=== PATIENT | male | born 1980 | race Caucasian/White ===

== ENCOUNTER 2020-12-14 04:19 | Emergency (ER) | payer OTHER, SELFPAY ==
[2020-12-14 04:26] VITALS: BP 140/88; PULSE 82; RESP 14; TEMP 36.8; O2SAT 98; BMI 23.0
[2020-12-14 04:32] VITALS: BP 140/88; PULSE 82; RESP 14; TEMP 36.8; O2SAT 98
[2020-12-14 04:46] LABS: Glucose Urine UA NEG (NEG); Leukocyte Esterase Urine NEG (NEG); Nitrite Urine NEG (NEG); Specific Gravity - Urine 1.025 (1.005-1.025); Urine Blood TRACE (NEG); Urine Ketones NEG (NEG); Urine Protein 2+ MG/DL (NEG-TRACE)
[2020-12-14 04:47] LABS: Appearance Urine CLEAR; Color Urine YELLOW
[2020-12-14 04:58] LABS: Bacteria Urine TRACE /LPF; Squamous Epithelial Cell Urine TRACE /LPF
[2020-12-14 05:04] LABS: Basophils Percent Auto 0.5 % (0-2); Eosinophils Absolute Auto 0.1 X10*3/uL (0.0-0.4); Eosinophils Percent Auto 1.6 % (0-4); Hematocrit 44.3 % (42-52); Hemoglobin 14.7 g/dl (14.0-18.0); Imm Gran Abs Auto 0.01 X10*3/uL (0.00-0.03); Imm Gran Pct Auto 0.3 % (0.0-0.4); Lymphocytes Absolute Auto 1.7 X10*3/uL (1.2-4.9); Lymphocytes Percent Auto 45.8 % (20-40); Mean Corpuscular HGB Conc 33.2 g/dl (31.0-36.0); Mean Corpuscular Hemoglobin 29.5 pg (27.0-33.0); Mean Corpuscular Volume 88.8 fL (80-98); Mean Platelet Volume 10.5 fL (9.4-12.4); Monocytes Absolute Auto 0.4 X10*3/uL (0.1-1.2); Monocytes Percent Auto 9.5 % (2-11); Neutrophils Absolute Auto 1.6 X10*3/uL (2.0-8.3); Neutrophils Percent Auto 42.3 % (45-73); Platelet Count 262 X10*3/uL (160-400); Red Blood Count 4.99 X10*6/uL (4.60-5.80); Red Cell Distribution Width 12.2 % (11.0-16.0); White Blood Count 3.8 X10*3/uL (4.8-10.8)
[2020-12-14 05:05] LABS: MANUAL DIFF FLAG NO
[2020-12-14 05:29] LABS: Alanine Aminotransferase 17 U/L (0-40); Albumin Level 4.4 g/dL (3.5-5.0); Alkaline Phosphatase 55 U/L (39-117); Anion Gap 15 (12-20); Aspartate Amino Transferase 15 U/L (5-37); Bilirubin Total 1.1 mg/dL (0.0-1.0); Blood Urea Nitrogen 18 mg/dL (9-16); Calcium 9.4 mg/dL (8.4-10.2); Carbon Dioxide 24 mmol/L (22-29); Chloride 105 mmol/L (96-108); Creatinine Clr Calc Pharmacy 78.5; Estimated Glomerular Filt Rate 59; Glucose Random 90 mg/dL (60-115); Potassium 3.9 mmol/l (3.3-5.1); Sodium 140 mmol/L (135-145); Total Protein 6.8 g/dL (6.5-8.0)
--- NOTE | 2020-12-14 05:56 | CT_ITS ---
EXAMINATION: CT ABDOMEN AND PELVIS WITHOUT CONTRAST CLINICAL INFORMATION: Right flank pain, history of left nephrectomy COMPARISON: 05/07/2020 TECHNIQUE: Multidetector volumetric imaging was performed from the superior aspect of the liver through the pubic symphysis. Sagittal and coronal reformatted images were obtained on the technologist's workstation. This CT examination was performed using dose optimization techniques as appropriate, variously including the following: *Automated exposure control *Adjustment of mA and/or kV according to patient size (this includes techniques or standardized protocols for targeted exams where dose is matched to indication/reason for exam; i.e. extremities or head) *Use of iterative reconstruction technique DLP: 520 mGy-cm FINDINGS: LUNG BASES: The visualized lung bases are unremarkable. LIVER, GALLBLADDER, AND BILIARY TREE: The liver is normal in size, shape, and attenuation. No focal hepatic lesion or biliary ductal dilatation is present. The gallbladder is unremarkable. PANCREAS: Unremarkable. SPLEEN: Unremarkable. ADRENAL GLANDS: Unremarkable. KIDNEYS AND URETERS: Patient is status post left nephrectomy. No right-sided hydronephrosis or ureteral calculus. Few tiny calculi are noted in the peripheral cortex of the mid to lower right kidney. BLADDER: Unremarkable. GASTROINTESTINAL TRACT: The small and large bowel are unremarkable. The appendix is unremarkable. No free fluid or free air is seen. ABDOMINAL WALL: No significant hernia is appreciated. LYMPH NODES: Normal. VASCULAR: Unremarkable. PELVIC VISCERA: Unremarkable. OSSEOUS STRUCTURES: Unremarkable. CT/CT abdomen pelvis wo con IMPRESSION: No acute findings identified in the abdomen/pelvis. Status post left nephrectomy.
--- NOTE | 2020-12-14 05:56 | ED.GENADULT ---
HPI - General Adult General Chief complaint: Urogenital-Male Stated complaint: General PAin Time Seen by Provider: 12/14/20 04:48 Source: patient Mode of arrival: ambulatory History of Present Illness HPI narrative: This is a 40-year-old male with significant past medical history left nephrectomy for CA who presents with concerns achy pain at the right flank that he describes as being a little more posterior and is not been associated with any nausea or vomiting or urinary symptoms. However, patient states he has been experiencing some chills with headache, heart palpitations, ?GI symptoms?, and poor sleep. He then endorses that he has had intermittent struggles with anxiety. Related Data Previous Rx's Medication Instructions Recorded hydroxyzine HCl 50 mg PO TID PRN #10 tab 12/14/20 Allergies Allergy/AdvReac Type Severity Reaction Status Date / Time No Known Allergies Allergy Verified 12/14/20 04:25 Review of Systems Review of Systems: Pertinent positives and negatives as stated in HPI 10 point review systems is otherwise negative. PMFSH Past Medical History Source: nursing notes reviewed Medical History Anxiety Social History Social History Alcohol intake: never Smoking Status: Never smoker Use of substances other than those prescribed or required for medical reasons: No Advance Directives: No Physical Exam Vital Signs: Vital Signs: Last Vital Signs Temp 98.2 F 12/14/20 04:32 Pulse 82 12/14/20 04:32 Resp 14 12/14/20 04:32 BP 140/88 H 12/14/20 04:32 Pulse Ox 98 12/14/20 04:32 Body Mass Index 23.0 VITAL SIGNS: Reviewed. GENERAL: Well developed, well nourished, in no acute distress. HEAD: Normocephalic/atraumatic, EYES: PERRLA, EOMI intact without pain, no nystagmus/pallor/icterus noted EARS: Ext canals without abnormality NOSE: Nares patent bilateral OROPHARYNX: no oral lesions noted, posterior pharynx clear NECK: Supple, no adenopathy LUNGS: Normal breath sounds. No adventitious sounds or accessory muscle use. SpO2<98> CARDIOVASCULAR: Regular rate and rhythm without noted murmurs ABDOMEN: Soft, non-tender, non-distended with bowel sounds. MUSCULOSKELETAL: No tenderness, deformities, or effusions noted on gross inspection. EXTREMITIES: No cyanosis, clubbing or edema. SKIN: Inspection of the skin reveals no rashes, ulcerations, jaundice, pallor, or petechiae. NEUROLOGIC: Alert and oriented x 4. Course Course Course Narrative: This is a 40-year-old male with history and clinical presentation consistent with likely anxiety, however with noted right flank pain remote history left nephrectomy for cancer further evaluation was conducted. All investigations were reviewed to include imaging without acute findings demonstrate alternative etiologies for patient's symptoms. On re-evaluation he endorses some improvement in his anxiety-like symptoms. He was strongly encouraged to follow-up with his primary care doctor and he will be discharged in stable condition. Medical Decision Making Lab Data Result diagrams: 12/14/20 04:59 12/14/20 04:59 Labs: Lab Results 12/14/20 12/14/20 12/14/20 Range/Units 04:37 04:59 04:59 WBC 3.8 L (4.8-10.8) X10*3/uL RBC 4.99 (4.60-5.80) X10*6/uL Hgb 14.7 (14.0-18.0) g/dl Hct 44.3 (42-52) % MCV 88.8 (80-98) fL MCH 29.5 (27.0-33.0) pg MCHC 33.2 (31.0-36.0) g/dl RDW 12.2 (11.0-16.0) % Plt Count 262 (160-400) X10*3/uL MPV 10.5 (9.4-12.4) fL Immature Gran % (Auto) 0.3 (0.0-0.4) % Neut % (Auto) 42.3 L (45-73) % Lymph % (Auto) 45.8 H (20-40) % [place] % (Auto) 9.5 (2-11) % Eos % (Auto) 1.6 (0-4) % Baso % (Auto) 0.5 (0-2) % Lymph # (Auto) 1.7 (1.2-4.9) X10*3/uL [place] # (Auto) 0.4 (0.1-1.2) X10*3/uL Eos # (Auto) 0.1 (0.0-0.4) X10*3/uL Baso # (Auto) 0.0 (0.0-0.2) X10*3/uL Abs Immat Gran (auto) 0.01 (0.00-0.03) X10*3/uL Absolute Neuts (auto) 1.6 L (2.0-8.3) X10*3/uL Absolute Nucleated RBC 0.000 (0.0-0.012) X10*3/uL Nucleated RBC % (auto) 0.0 (0.0-0.2) /100WBC Sodium 140 (135-145) mmol/L Potassium 3.9 (3.3-5.1) mmol/l Chloride 105 (96-108) mmol/L Carbon Dioxide 24 (22-29) mmol/L Anion Gap 15 (12-20) BUN 18 H (9-16) mg/dL Creatinine 1.35 (0.5-1.4) mg/dL Estim Creat Clear Calc 78.5 Estimated GFR 59 Random Glucose 90 (60-115) mg/dL Calcium 9.4 (8.4-10.2) mg/dL Total Bilirubin 1.1 H (0.0-1.0) mg/dL AST 15 (5-37) U/L ALT 17 (0-40) U/L Alkaline Phosphatase 55 (39-117) U/L Total Protein 6.8 (6.5-8.0) g/dL Albumin 4.4 (3.5-5.0) g/dL TSH 1.41 (0.32-4.0) uIU/mL Urine Color YELLOW Urine Appearance CLEAR Urine pH 6.0 (5.0-8.0) Ur Specific [place] 1.025 (1.005-1.025) Urine Protein 2+ H (NEG-TRACE) MG/DL Urine Glucose (UA) NEG (NEG) MG/DL Urine Ketones NEG (NEG) MG/DL Urine Blood TRACE (NEG) Urine Nitrite NEG (NEG) Ur Leukocyte Esterase NEG (NEG) Urine RBC 1-4 (0) /HPF Urine WBC 1-4 (0-4) /HPF Ur Squamous Epith Cells TRACE /LPF Urine Bacteria TRACE /LPF Discharge Plan Discharge Clinical Impression: Anxiety, Right flank discomfort Patient Disposition: Home, Self-Care Instructions: Flank Pain (ED), Anxiety (ED) Additional Instructions: Please do not hesitate to return to the emergency department if you develop any acute worsening of your symptoms. Prescriptions: New hydroxyzine HCl 50 mg tablet 50 mg PO TID PRN (Reason: anxiety) Qty: 10 RF: 0 Referrals: Robles Brumfield DO [Primary Care Provider] - 2 days (Re-evaluation and follow-up for right flank pain and anxiety like symptoms.)
[2020-12-14 06:00] VITALS: BP 133/77; PULSE 55; O2SAT 99
[2020-12-14] MEDS: hydrOXYzine HCL 50 MG TABLET PO (06:03)
[2020-12-14 06:39] LABS: Thyroid Stimulating Hormone 1.41 uIU/mL (0.32-4.0)
== END 2020-12-14 07:25 | disposition home or self-care (01) ==
PROVIDERS: Emergency Provider Student in an Organized Health Care Education/Training Program; PCP Family Medicine Adult Medicine
DX: F41.9 Anxiety disorder, unspecified (principal); R10.9 Unspecified abdominal pain
CPT/HCPCS: 36415; 74176; 80053; 81001; 84443; 85025; 99284

== ENCOUNTER 2021-03-26 06:27 | Outpatient (REF) | payer OTHER, SELFPAY ==
[2021-03-26 07:37] LABS: MANUAL DIFF FLAG NO
[2021-03-26 07:46] LABS: Basophils Percent Auto 0.6 % (0-2); Eosinophils Absolute Auto 0.1 X10*3/uL (0.0-0.4); Eosinophils Percent Auto 1.9 % (0-4); Hematocrit 45.9 % (42-52); Hemoglobin 15.1 g/dl (14.0-18.0); Lymphocytes Absolute Auto 1.8 X10*3/uL (1.2-4.9); Mean Corpuscular HGB Conc 32.9 g/dl (31.0-36.0); Mean Corpuscular Hemoglobin 29.4 pg (27.0-33.0); Mean Corpuscular Volume 89.5 fL (80-98); Mean Platelet Volume 11.3 fL (9.4-12.4); Monocytes Absolute Auto 0.4 X10*3/uL (0.1-1.2); Monocytes Percent Auto 8.4 % (2-11); Neutrophils Absolute Auto 2.4 X10*3/uL (2.0-8.3); Neutrophils Percent Auto 51.1 % (45-73); Platelet Count 286 X10*3/uL (160-400); Red Blood Count 5.13 X10*6/uL (4.60-5.80); Red Cell Distribution Width 12.5 % (11.0-16.0); White Blood Count 4.7 X10*3/uL (4.8-10.8)
[2021-03-26 07:56] LABS: Glucose Urine UA NEG (NEG); Leukocyte Esterase Urine NEG (NEG); Nitrite Urine NEG (NEG); Specific Gravity - Urine 1.025 (1.005-1.025); Urine Blood NEG (NEG); Urine Ketones NEG (NEG); Urine Protein 1+ MG/DL (NEG-TRACE)
[2021-03-26 07:58] LABS: Appearance Urine CLEAR; Color Urine YELLOW
[2021-03-26 08:00] LABS: Alanine Aminotransferase 25 U/L (0-40); Albumin Level 4.5 g/dL (3.5-5.0); Alkaline Phosphatase 61 U/L (39-117); Anion Gap 10 (12-20); Aspartate Amino Transferase 16 U/L (5-37); Bilirubin Total 0.6 mg/dL (0.0-1.0); Blood Urea Nitrogen 16 mg/dL (9-16); Calcium 9.8 mg/dL (8.4-10.2); Carbon Dioxide 28 mmol/L (22-29); Chloride 105 mmol/L (96-108); Cholesterol 227 mg/dL; Estimated Glomerular Filt Rate 57; Glucose Fasting 94 mg/dL (60-99); HDL Cholesterol 50 mg/dL; LDL Cholesterol Calculated 161 mg/dl; Potassium 4.1 mmol/L (3.3-5.1); Sodium 139 mmol/L (135-145); Total Protein 7.1 g/dL (6.5-8.0); Triglycerides 81 mg/dL
[2021-03-26 08:08] LABS: RBC Urine 0 /HPF (0); WBC Urine 0 /HPF (0-4)
[2021-03-26 08:23] LABS: Thyroid Stimulating Hormone 0.84 uIU/mL (0.32-4.0)
== END 2021-03-26 06:28 | disposition home or self-care (01) ==
LOC: HO.LAB 06:27
PROVIDERS: PCP Internal Medicine; Visit Provider Internal Medicine
DX: Z00.00 Encounter for general adult medical examination without abnormal findings (principal); E11.9 Type 2 diabetes mellitus without complications; E03.9 Hypothyroidism, unspecified; N39.0 Urinary tract infection, site not specified
CPT/HCPCS: 36415; 80053; 80061; 81001; 84443; 85025

== ENCOUNTER 2021-05-09 08:30 | Outpatient (REF) | payer OTHER, SELFPAY ==
[2021-05-09 10:49] LABS: Blood Urea Nitrogen 20 mg/dL (9-16); C Reactive Protein 0.07 mg/dL (< or = 0.50); Estimated Glomerular Filt Rate > 60
[2021-05-10 13:57] LABS: H Pylori Breath Test NOT DETECTED (NOT DETECTED)
[2021-05-12 01:12] LABS: Transglutaminase Ab IgG 1 U/mL; Transglutaminase IgA 1 U/mL
== END 2021-05-09 08:31 | disposition home or self-care (01) ==
LOC: HO.LAB 08:30
PROVIDERS: PCP Physician Assistant; Referring Provider Physician Assistant; Visit Provider Nurse Practitioner Family
DX: Z01.812 Encounter for preprocedural laboratory examination (principal); H93.19 Tinnitus, unspecified ear; K21.9 Gastro-esophageal reflux disease without esophagitis; R14.1 Gas pain; R10.9 Unspecified abdominal pain
CPT/HCPCS: 36415; 82565; 83013; 83516; 84520; 86140

== ENCOUNTER 2021-05-24 12:47 | Outpatient (REF) | payer OTHER, SELFPAY ==
[2021-05-24 14:07] LABS: Prostate Specific Antigen Scr 1.29 ng/mL (<0.05-4.0)
[2021-05-24 14:16] LABS: Glucose Urine UA NEG (NEG); Leukocyte Esterase Urine NEG (NEG); Nitrite Urine NEG (NEG); Specific Gravity - Urine <= 1.005 (1.005-1.025); Urine Blood NEG (NEG); Urine Ketones NEG (NEG); Urine Protein TRACE MG/DL (NEG-TRACE)
[2021-05-24 14:19] LABS: Appearance Urine CLEAR; Color Urine STRAW
[2021-05-25 08:47] LABS: Lyme Abs Screen <0.90 index
== END 2021-05-24 12:48 | disposition home or self-care (01) ==
LOC: HO.LAB 12:47
PROVIDERS: Internal Medicine; PCP Physician Assistant; Visit Provider Physician Assistant
DX: Z12.5 Encounter for screening for malignant neoplasm of prostate (principal); R53.83 Other fatigue; N39.0 Urinary tract infection, site not specified
CPT/HCPCS: 36415; 81003; 84153; 86617; 86618

== ENCOUNTER 2022-01-24 09:35 | Outpatient (REF) | payer OTHER, SELFPAY ==
[2022-01-24 11:00] LABS: Erythrocyte Sedimentation Rate 2 MM/HR (0-15)
[2022-01-24 11:03] LABS: Estimated Average Glucose 100 mg/dL; Hemoglobin A1c % 5.1 %
[2022-01-24 11:11] LABS: Alanine Aminotransferase 80 U/L (0-40); Albumin Level 4.5 g/dL (3.5-5.0); Alkaline Phosphatase 71 U/L (39-117); Anion Gap 11 (12-20); Aspartate Amino Transferase 32 U/L (5-37); Bilirubin Total 0.7 mg/dL (0.0-1.0); Blood Urea Nitrogen 19 mg/dL (9-16); C Reactive Protein 0.07 mg/dL (< or = 0.50); Carbon Dioxide 30 mmol/L (22-29); Chloride 102 mmol/L (96-108); Estimated Glomerular Filt Rate 51; Glucose Fasting 93 mg/dL (60-99); Lipase 69 U/L (8-78); Potassium 4.6 mmol/L (3.3-5.1); Sodium 138 mmol/L (135-145); Total Protein 7.3 g/dL (6.5-8.0)
[2022-01-24 11:14] LABS: TSH reflex Free T4 0.89 uIU/mL (0.32-4.0)
== END 2022-01-24 09:36 | disposition home or self-care (01) ==
LOC: HO.LAB 09:35
PROVIDERS: PCP Physician Assistant; Visit Provider Physician Assistant
DX: R14.1 Gas pain (principal); R79.89 Other specified abnormal findings of blood chemistry; Z13.1 Encounter for screening for diabetes mellitus; Z13.29 Encounter for screening for other suspected endocrine disorder
CPT/HCPCS: 36415; 80053; 83036; 83690; 84443; 85652; 86140

== ENCOUNTER 2022-03-11 15:43 | Outpatient (REF) | payer OTHER, SELFPAY ==
[2022-03-11 17:47] LABS: Amylase 130 U/L (28-100)
[2022-03-11 18:04] LABS: Vitamin B12 308 pg/mL (200-900)
[2022-03-15 14:21] LABS: Vitamin D 25-OH, D2 <4 ng/mL; Vitamin D 25-OH, D3 37 ng/mL; Vitamin D 25-OH, Total 37 ng/mL (30-100)
== END 2022-03-11 15:44 | disposition home or self-care (01) ==
LOC: HO.LAB 15:43
PROVIDERS: PCP Physician Assistant; Referring Provider Physician Assistant; Visit Provider Nurse Practitioner Family
DX: R14.0 Abdominal distension (gaseous) (principal); R19.7 Diarrhea, unspecified; K21.9 Gastro-esophageal reflux disease without esophagitis; E55.9 Vitamin D deficiency, unspecified
CPT/HCPCS: 36415; 82150; 82306; 82607; 82746; 86003; 99212

== ENCOUNTER 2022-11-03 02:44 | Emergency (ER) | payer OTHER, SELFPAY | END 2022-11-03 04:02 | disposition left against medical advice (07) | PROVIDERS: Emergency Provider Emergency Medicine | DX: R05.9 Cough, unspecified (principal) ==

== ENCOUNTER 2022-11-03 07:08 | Emergency (ER) | payer OTHER, SELFPAY ==
[2022-11-03 07:09] VITALS: BP 137/98; PULSE 92; RESP 18; TEMP 36.6; O2SAT 98; BMI 25.1
[2022-11-03 07:35] LABS: Strep A Nucleic Acid Negative (Negative)
[2022-11-03 08:11] LABS: Influenza A PCR NEGATIVE (Negative); Influenza B PCR NEGATIVE (Negative); Resp Syncy Virus RNA Qual PCR NEGATIVE (Negative); SARS COV2 PCR INHOUSE POSITIVE (Negative)
--- NOTE | 2022-11-03 08:12 | ED.GENADULT ---
HPI - General Adult General Chief complaint: General Medical Stated complaint: Strep throat Time Seen by Provider: 11/03/22 08:10 Source: patient Mode of arrival: ambulatory Limitations: no limitations History of Present Illness HPI narrative: cough, rhinorrhea, for 5 days, now with sore throat. Difficulty swallowing Onset (ago): day(s) Severity: mild Pain Consistency: constant Associated symptoms: cough, fever/chills and other (sore throat) Related Data Previous Rx's Medication Instructions Recorded simethicone 125 mg capsule (Gas 125 mg PO TID-QID PRN abdominal 05/09/21 Relief (simethicone)) distention #120 caps [id number] 1 cap PO QID #120 caps 03/11/22 12,000-38,000-60,000 unit capsule,delayed rel (Creon) [id number]-[id number] 2.5 20 ml PO Q4H PRN cough #118 mL 11/03/22 mg-5 mg-50 mg/5 mL oral liquid (Robitussin Cough and Cold CF) Allergies Allergy/AdvReac Type Severity Reaction Status Date / Time No Known Allergies Allergy Verified 03/11/22 15:47 Review of Systems Review of Systems: Yes all other systems are reviewed and are negative ENT: Reports sore throat Respiratory: Respiratory: Reports chest congestion and Reports cough PMFSH Past Medical History Medical History Anxiety Surgical History History of nephrectomy, left Family History Family History Mother No problems noted. Father No problems noted. 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 Physical Exam ED Vital Signs: Vital Signs - 24 hr 11/03/22 07:09 Temperature 98 F Pulse Rate 92 Respiratory Rate 18 Blood Pressure 137/98 H Pulse Oximetry 98 Oxygen Delivery Method Room Air BMI result Body Mass Index 25.1 Const Other: coughing General: healthy appearing Nutritional Appearance: average body habitus Orientation/consciousness: oriented to person and patient oriented x3 Limitations: no limitations HENMT Head: Yes normal to inspection Ears: external ears normal General nose exam: Normal external nose present Mouth: Normal oral and palatal mucosa present and oropharynx normal Throat: Yes posterior oropharynx normal Eyes General: appearance normal, both eyes and all related structures Neck Neck: Yes normal visual inspection Chest Chest palpation & inspection: normal inspection of the chest Resp Auscultation: clear to auscultation bilaterally Cardio Jugular venous distension: no JVD Rate: regular rate Rhythm: regular rhythm Heart sounds: S1 normal heart sound present and S2 normal heart sound present GI Inspection: Yes normal to inspection Palpation (GI): Soft to palpation, nontender and No hepatosplenomegaly present Auscultation: normal bowel sounds General: Yes no CVA tenderness Back/Spine/Pelvis Back: no CVA tenderness Skin General skin exam: no rashes or lesions noted Neuro General: oriented to person and patient oriented x3 Cranial nerves: Yes CN's II-XII intact bilaterally Motor exam (neuro): 5/5 motor strength present throughout Extrem General: Yes normal to inspection Psych Appearance: grossly normal Course Reevaluation(s) Reevaluation #1: patient with COVID will dc on Robitussin Time: 08:30 Medical Decision Making Lab Data Labs: Lab Results 11/03/22 11/03/22 Range/Units 07:18 07:18 Influenza Type A (PCR) NEGATIVE (Negative) Influenza Type B (PCR) NEGATIVE (Negative) RSV RNA Qual (PCR) NEGATIVE (Negative) SARS-CoV-2 RNA (RT-PCR) POSITIVE A (Negative) S. pyogenes GrpA NAZARIO Negative (Negative) Discharge Plan Discharge Clinical Impression: COVID-19 Patient Disposition: Home, Self-Care Instructions: Covid-19 Viral Syndrome and Novel Coronavirus (ED) Hey/Ath Prescriptions: New Robitussin Cough and Cold CF 2.5-5-50 mg/5 mL liquid 20 ml PO Q4H PRN (Reason: cough) Qty: 118 0RF No Action simethicone [Gas Relief (simethicone)] 125 mg capsule 125 mg PO TID-QID PRN (Reason: abdominal distention) Qty: 120 2RF Creon 12,000-38,000 -60,000 unit capsule,delayed release(DR/EC) 1 cap PO QID Qty: 120 3RF Rx Instructions: administer with meals and/or snacks Referrals: Reg Rogers PA-C [Primary Care Provider] - 1 week
== END 2022-11-03 08:38 | disposition home or self-care (01) ==
PROVIDERS: Emergency Provider Emergency Medicine; PCP Physician Assistant
DX: U07.1 COVID-19 (principal); J02.0 Streptococcal pharyngitis; R05.9 Cough, unspecified; R50.9 Fever, unspecified
CPT/HCPCS: 0241U; 87651; 99282; 99283

== ENCOUNTER 2023-02-10 07:56 | Outpatient (REF) | payer OTHER, SELFPAY ==
[2023-02-10 08:29] LABS: Hematocrit 49.9 % (42.0-52.0); Hemoglobin 16.3 g/dl (14.0-18.0); Mean Corpuscular HGB Conc 32.7 g/dl (31.0-36.0); Mean Corpuscular Hemoglobin 28.9 pg (27.0-33.0); Mean Corpuscular Volume 88.5 fL (80.0-98.0); Mean Platelet Volume 10.8 fL (9.4-12.4); Platelet Count 314 X10*3/uL (160-400); Red Blood Count 5.64 X10*6/uL (4.60-5.80); Red Cell Distribution Width 12.7 % (11.0-16.0); White Blood Count 5.6 X10*3/uL (4.8-10.8)
[2023-02-10 09:10] LABS: Alanine Aminotransferase 32 U/L (0-40); Albumin Level 4.5 g/dL (3.5-5.0); Alkaline Phosphatase 75 U/L (39-117); Anion Gap 15 (12-20); Aspartate Amino Transferase 20 U/L (5-37); Bilirubin Total 0.7 mg/dL (0.0-1.0); Blood Urea Nitrogen 26 mg/dL (9-16); Calcium 9.8 mg/dL (8.4-10.2); Carbon Dioxide 26 mmol/L (22-29); Chloride 104 mmol/L (96-108); Estimated Glomerular Filt Rate 50; Glucose Fasting 88 mg/dL (60-99); Potassium 4.6 mmol/L (3.3-5.1); Sodium 140 mmol/L (135-145); Total Protein 7.4 g/dL (6.5-8.0)
[2023-02-10 09:25] LABS: TSH reflex Free T4 1.16 uIU/mL (0.32-4.0)
== END 2023-02-10 07:57 | disposition home or self-care (01) ==
LOC: HO.LAB 07:56
PROVIDERS: PCP Physician Assistant; Visit Provider Physician Assistant
DX: Z13.29 Encounter for screening for other suspected endocrine disorder (principal)
CPT/HCPCS: 36415; 80053; 84443; 85027

== ENCOUNTER 2023-03-10 05:54 | Emergency (ER) | payer OTHER, SELFPAY ==
--- NOTE | ~2023-03-10 | CT_ITS ---
EXAMINATION: CT ABDOMEN AND PELVIS WITHOUT CONTRAST CLINICAL INFORMATION: Flank pain, history of left nephrectomy. COMPARISON: CT abdomen/pelvis 12/14/2020, 05/07/2020 and 10/30/2017. TECHNIQUE: Multidetector volumetric imaging was performed from the superior aspect of the liver through the pubic symphysis. Sagittal and coronal reformatted images were obtained on the technologist's workstation. This CT examination was performed using dose optimization techniques as appropriate, variously including the following: *Automated exposure control *Adjustment of mA and/or kV according to patient size (this includes techniques or standardized protocols for targeted exams where dose is matched to indication/reason for exam; i.e. extremities or head) *Use of iterative reconstruction technique DLP: 472 mGy-cm FINDINGS: The lack of intravenous contrast limits evaluation of the solid visceral organs including the liver, spleen, pancreas, and kidneys. LUNG BASES: No focal consolidation or pleural effusion. LIVER, GALLBLADDER, AND BILIARY TREE: The noncontrast liver is normal in size, shape, and attenuation. No focal hepatic lesion in this limited noncontrast examination. No biliary ductal dilatation is present. The gallbladder is unremarkable with no evidence of radiopaque gallstones, gallbladder wall thickening, or obvious pericholecystic inflammatory changes. PANCREAS: Limited noncontrast examination, unremarkable. SPLEEN: Limited noncontrast examination, unremarkable. ADRENAL GLANDS: No adrenal mass. KIDNEYS AND URETERS: Limited noncontrast examination. Prior left nephrectomy. A few tiny punctate areas of cortical calcification in the right kidney, for instance images 32 and 23 of series 3 are stable dating back to 05/07/2020. A few too small to characterize cortical hypo and hyperdensities in the right kidney, likely representing a combination of simple and proteinaceous/hemorrhagic cysts. No nephrolithiasis. No perinephric fat stranding. BLADDER: Partially under distended limiting assessment of wall thickening. No intraluminal calculi. No significant perivesical fat stranding. GASTROINTESTINAL TRACT: The stomach and the small bowel are nondilated. Normal appendix. Colonic diverticulosis without significant pericolonic inflammatory changes to suspect acute diverticulitis. No bowel obstruction. ABDOMINAL WALL: No significant hernia is appreciated. LYMPH NODES: No pathologically enlarged lymph nodes. VASCULAR: Limited noncontrast examination. Abdominal aorta is normal in caliber. PELVIC VISCERA: Unremarkable. OSSEOUS STRUCTURES: No acute or aggressive appearing osseous abnormalities. CT/CT abdomen pelvis wo IV con IMPRESSION: No acute findings identified in the abdomen/pelvis. A few hyper and hypodensities in the cortex of the right kidney, many stable since 2017, likely represent a combination of simple and proteinaceous/hemorrhagic cysts, incompletely characterized in this noncontrast examination. For further characterization, correlation with an elective abdominal MRI with and without IV contrast could be obtained.
[2023-03-10 06:01] VITALS: BP 142/89; PULSE 81; RESP 18; TEMP 36.4; O2SAT 100; BMI 25.1
[2023-03-10 06:32] LABS: MANUAL DIFF FLAG NO
[2023-03-10 06:36] LABS: Basophils Percent Auto 0.5 % (0-2); Eosinophils Absolute Auto 0.1 X10*3/uL (0.0-0.4); Eosinophils Percent Auto 2.5 % (0-4); Hematocrit 49.8 % (42.0-52.0); Lymphocytes Percent Auto 35.5 % (20-40); Mean Corpuscular HGB Conc 34.1 g/dl (31.0-36.0); Mean Corpuscular Hemoglobin 29.8 pg (27.0-33.0); Mean Corpuscular Volume 87.4 fL (80.0-98.0); Mean Platelet Volume 10.8 fL (9.4-12.4); Monocytes Absolute Auto 0.5 X10*3/uL (0.1-1.2); Monocytes Percent Auto 8.9 % (2-11); Neutrophils Absolute Auto 2.9 x10*3/uL (2.0-8.3); Neutrophils Percent Auto 52.6 % (45-73); Platelet Count 305 X10*3/uL (160-400); Red Cell Distribution Width 12.6 % (11.0-16.0); White Blood Count 5.5 X10*3/uL (4.8-10.8)
[2023-03-10 06:56] LABS: Alanine Aminotransferase 34 U/L (0-40); Albumin Level 4.5 g/dL (3.5-5.0); Alkaline Phosphatase 78 U/L (39-117); Anion Gap 10 (12-20); Aspartate Amino Transferase 18 U/L (5-37); Bilirubin Direct 0.1 mg/dL (0.0-0.5); Bilirubin Total 0.7 mg/dL (0.0-1.0); Blood Urea Nitrogen 18 mg/dL (9-16); Calcium 9.7 mg/dL (8.4-10.2); Carbon Dioxide 27 mmol/L (22-29); Chloride 107 mmol/L (96-108); Estimated Glomerular Filt Rate 50; Glucose Random 97 mg/dL (60-115); Lipase 66 U/L (8-78); Potassium 4.2 mmol/L (3.3-5.1); Sodium 140 mmol/L (135-145); Total Protein 7.3 g/dL (6.5-8.0)
--- NOTE | 2023-03-10 07:30 | ED.GENADULT ---
HPI - General Adult General Chief complaint: Back Pain/Injury Stated complaint: back pain Time Seen by Provider: 03/10/23 07:16 Source: patient Mode of arrival: ambulatory Limitations: no limitations History of Present Illness HPI narrative: 42-year-old male with history of kidney cancer status post left nephrectomy presents with right flank pain. The pain started approximately 1 week ago. The pain is [id number]. There is no clear relieving or exacerbating features. Sometimes the pain radiates upward or sometimes the abdomen. There is an patient denies any recent weight loss. She he denies any night sweats. Denies any urinary frequency, urgency, dysuria or hematuria. There is no prior treatment. The pain is not worse with movement, twisting, lifting. Denies any falls, injuries trauma symptoms are associated with some anxieties so seated with his history of kidney cancer. Related Data Home Medications Medication Instructions Recorded Confirmed No Known Home Meds 01/27/23 01/27/23 Allergies Allergy/AdvReac Type Severity Reaction Status Date / Time No Known Allergies Allergy Verified 03/10/23 06:06 [facility] Past Medical History Medical History Anxiety Surgical History History of nephrectomy, left Family History Family History Mother No problems noted. Father No problems noted. 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 Cognitive needs: No Hearing needs: No Vision needs: No Physical Exam ED Vital Signs: Vital Signs - 24 hr 03/10/23 06:01 Temperature 97.6 F Pulse Rate 81 Respiratory Rate 18 Blood Pressure 142/89 H Pulse Oximetry 100 Oxygen Delivery Method Room Air BMI result Body Mass Index 25.1 GEN: Well developed, no acute distress, alert, oriented HEENT: Normocephalic, atraumatic, normal external ears, nose appears normal, no oropharyngeal edema or exudates Eyes: Normal to appearance Neck: Supple, no lymphadenopathy Respiratory: Talks in complete sentences, no respiratory distress, clear to auscultation bilaterally Cardiovascular: Regular rate and rhythm, no murmurs rubs or gallops Abdomen: Soft, nontender, nondistended, no guarding, no rebound Back: No CVA tenderness Extremities: No clubbing cyanosis or edema Neurologic: No focal neurologic deficits, cranial nerves 2-12 intact, strength is 5/5 bilaterally Skin: No rash Course Course Course Narrative: 42-year-old male presents with right flank pain. Patient has history kidney cancer. Examination is benign. At this point, it would be appropriate to do dry imaging given chronic renal insufficiency. His symptoms are not clearly musculoskeletal at this time as they are not associated with movement. There has been no weight loss, night sweats. Denies him any hematuria. Patient does not want anything for pain at this time. Medical Decision Making Medical Decision Making [facility] Narrative: 42-year-old male presents with right flank pain. Differential diagnosis could include renal colic, hematuria, kidney cancer, musculoskeletal pain, anxiety, IBD, IBS, colitis, diverticulitis, acute cholecystitis. Examination however, is quite benign. Will check laboratory analysis, urinalysis, CT scan of the abdomen and pelvis to rule out a broad differential diagnosis. Differential Diagnosis Differential Diagnoses: The differential diagnosis associated with the presentation includes (See above) Admission/Observation Consideration of admission/observation: Escalation of care including admission/observation considered Lab Data MDM Lab Attestation statement: I reviewed the patient's lab results. 03/10/23 06:26 03/10/23 06:26 Labs: Lab Results 03/10/23 03/10/23 03/10/23 Range/Units 06:26 06:26 07:37 WBC 5.5 (4.8-10.8) X10*3/uL RBC 5.70 (4.60-5.80) X10*6/uL Hgb 17.0 (14.0-18.0) g/dl Hct 49.8 (42.0-52.0) % MCV 87.4 (80.0-98.0) fL MCH 29.8 (27.0-33.0) pg MCHC 34.1 (31.0-36.0) g/dl RDW 12.6 (11.0-16.0) % Plt Count 305 (160-400) X10*3/uL MPV 10.8 (9.4-12.4) fL Immature Gran % (Auto) 0.0 (0.0-0.4) % Neut % (Auto) 52.6 (45-73) % Lymph % (Auto) 35.5 (20-40) % [place] % (Auto) 8.9 (2-11) % Eos % (Auto) 2.5 (0-4) % Baso % (Auto) 0.5 (0-2) % Lymph # (Auto) 2.0 (1.2-4.9) X10*3/uL [place] # (Auto) 0.5 (0.1-1.2) X10*3/uL Eos # (Auto) 0.1 (0.0-0.4) X10*3/uL Baso # (Auto) 0.0 (0.0-0.2) X10*3/uL Abs Immat Gran (auto) 0.00 (0.00-0.03) X10*3/uL Absolute Neuts (auto) 2.9 (2.0-8.3) x10*3/uL Absolute Nucleated RBC 0.000 (0.0-0.012) X10*3/uL Nucleated RBC % (auto) 0.0 (0.0-0.2) /100WBC Sodium 140 (135-145) mmol/L Potassium 4.2 (3.3-5.1) mmol/L Chloride 107 (96-108) mmol/L Carbon Dioxide 27 (22-29) mmol/L Anion Gap 10 L (12-20) BUN 18 H (9-16) mg/dL Creatinine 1.56 H (0.5-1.4) mg/dL Estim Creat Clear Calc 67.0 Estimated GFR 50 Random Glucose 97 (60-115) mg/dL Calcium 9.7 (8.4-10.2) mg/dL Total Bilirubin 0.7 (0.0-1.0) mg/dL Direct Bilirubin 0.1 (0.0-0.5) mg/dL AST 18 (5-37) U/L ALT 34 (0-40) U/L Alkaline Phosphatase 78 (39-117) U/L Total Protein 7.3 (6.5-8.0) g/dL Albumin 4.5 (3.5-5.0) g/dL Lipase 66 (8-78) U/L Urine Color Yellow Urine Appearance Clear Urine pH 6.0 (5.0-9.0) Ur Specific [place] 1.015 (1.005-1.025) Urine Protein 100 (2+) H (Neg-Trace) mg/dL Urine Glucose (UA) Negative (Negative) mg/dL Urine Ketones Negative (Negative) mg/dL Urine Blood Negative (Negative) Urine Nitrite Negative (Negative) Ur Leukocyte Esterase Negative (Negative) Urine RBC 0-2 (0-2) /HPF Urine WBC 0-5 (0-5) /HPF Ur Squamous Epith Cells 0-2 (0-2) /HPF Urine Bacteria None Seen (None Seen) Hyaline Casts 0-2 (0-2) /LPF Independent Interpretation I performed an independent interpretation of an: CT Scan (no acute pathology ct abd/pelvis) Radiology Impression Discussion of test interpretation with radiology: I have reviewed the radiologist's reading. ( CT/CT abdomen pelvis wo IV con IMPRESSION: No acute findings identified in the abdomen/pelvis. A few hyper and hypodensities in the cortex of the right kidney, many stable since 2017, likely represent a combination of simple and proteinaceous/hemorrhagic cysts, incompletely ch) Tests considered The following testing was considered but not selected: Ultrasound Prescription Management I considered prescription management with: Pain Medication and Antibiotic Chronic Conditions Patient?s care impacted by: Other (History of kidney cancer) Discharge Plan Discharge Clinical Impression: Right flank pain, History of kidney cancer, H/O left nephrectomy, Chronic renal insufficiency, Asymptomatic proteinuria, Abnormal finding on diagnostic imaging of right kidney Patient Disposition: Home, Self-Care Instructions: Chronic Kidney Disease (ED), Nephrectomy (DC) Additional Instructions: You are evaluated for right-sided back/flank pain. He had a CT scan which did identify an abnormality described as many hyper and hypodensities in the cortex of the right kidney. These are stable since 2017. These do not appear to be malignant in nature. However, there is a recommendation for follow-up with an MRI with and without intravenous contrast. This can be ordered by her primary care provider, child abuse worker, oncologist. For ear pain, I would recommend Tylenol. Please avoid anti-inflammatory pain medications given her history of kidney removal. Prescriptions: No Action No Known Home Meds Referrals: Reg Rogers PA-C [Primary Care Provider] - 1 week
[2023-03-10 07:48] LABS: Appearance Urine Clear; Color Urine Yellow; Glucose Urine UA Negative (Negative); Leukocyte Esterase Urine Negative (Negative); Nitrite Urine Negative (Negative); Specific Gravity - Urine 1.015 (1.005-1.025); UMIC TRIGGER UACC YES; Urine Blood Negative (Negative); Urine Ketones Negative (Negative); Urine Protein 100 (2+) mg/dL (Neg-Trace)
[2023-03-10 07:53] LABS: Bacteria Urine None Seen (None Seen); Hyaline Casts Urine 0-2 /LPF (0-2); RBC Urine 0-2 /HPF (0-2); Squamous Epithelial Cell Urine 0-2 /HPF (0-2); WBC Urine 0-5 /HPF (0-5)
== END 2023-03-10 09:15 | disposition home or self-care (01) ==
PROVIDERS: Emergency Provider Emergency Medicine; PCP Physician Assistant
DX: R10.9 Unspecified abdominal pain (principal); N18.9 Chronic kidney disease, unspecified; R93.421 Abnormal radiologic findings on diagnostic imaging of right kidney; Z90.5 Acquired absence of kidney; Z85.528 Personal history of other malignant neoplasm of kidney
CPT/HCPCS: 36415; 74176; 80048; 80076; 81001; 83690; 85025; 99282; 99284

== ENCOUNTER 2023-12-03 15:12 | Outpatient (AMB) | payer OTHER, SELFPAY ==
--- NOTE | 2023-12-03 15:26 | A.OFFPC_ITS ---
Vital Signs 3 12/03/23 15:27 Height 5 ft 11 in Weight 184 lb 8 oz BMI 25.7 BP 140/92 H Blood Pressure Location Lt brachial Position Sitting Pulse 76 Pulse Source Pulse Oximeter Pulse Oximetry (%) 98 Oxygen Delivery Method Room Air Intake Visit Reasons: Growth r eye Intake Note: The patient is present for the evaluation of a small milia cyst noticed on the right eye approximately six months ago. Additionally, there is a pilar cyst on the top of the scalp. The patient is seeking a referral to dermatology. Asset Protection Representative Required: No Accompanied by: Self / Same As Patient Allergies No Known Allergies Allergy (Verified 12/03/23 15:43) Medication List - Last Reconciled 12/03/23 by Reg Rogers PA-C No Known Home Meds Tobacco use date assessed: 12/03/23 Dental Screening Dental Screen Date: 12/03/23 Did you have a dental visit in the last 12 months?: No Did you have a dental problem in the last 6 months where you did not have access to dental care?: No Was dental information given to patient?: Patient declined HPI Growth r eye 2 HPI0 Details Patient is a 43-year-old male here today for problem visit. He reports he has noted a growth over the inner aspect of his right eye over the last 6 months. Also has noted a cyst over the anterior aspect of his scalp that is nonpainful or bothersome. He otherwise denies any vision issues. [facility] Medical History Anxiety Surgical History History of nephrectomy, left Family History Mother No problems noted. Father No problems noted. 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 1. Little interest or pleasure in doing things: not at all 2. Feeling down, depressed, or hopeless: not at all 3. Trouble falling or staying asleep, or sleeping too much: several days 4. Feeling tired or having little energy: not at all 5. Poor appetite or overeating: not at all 6. Feeling bad about yourself - or that you are a failure or have let yourself or your family down: not at all 7. Trouble concentrating on things, such as reading the newspaper or watching television: not at all 8. Moving or speaking so slowly that other people could have noticed. Or the opposite - being so fidgety or restless that you have been moving around a lot more than usual: not at all 9. Thoughts that you would be better off or of hurting yourself in some way: not at all Total score: 1 Depression Screening Interpretation: Negative Depression Screening Done: Yes 23563 - PHQ-9 Billing: Yes Source: Developed by Drs. Samson Novoa, Prachi Oh, Shoaib Cunha and colleagues, with an educational ruy from [employer]. Thrive Questionnaire Date Thrive assessed: 12/03/23 I am a: Patient What is your living situation today?: I have a steady place to live Within the past 12 months, did the food you bought not last and you didn't have the money to get more?: Never true Within the past 12 months, did you worry whether your food would run out before you got money to buy more?: Never true Do you have trouble paying for medicines?: No Do you have trouble getting transportation to medical appointments?: No Do you have trouble paying your heating and electricity bill?: No Do you have trouble taking care of your child, family member or friend?: No Do you have trouble with day-to-day activities such as bathing, preparing meals, shopping, managing finances, etc.?: No Are you currently unemployed and looking for a job?: No Are you interested in more education?: No Please select the resources that you would like help with: None AUDIT C Alcohol Use Questionnaire (AUDIT-C) 1. How often do you have a drink containing alcohol?: Never 3. How often do you have six or more drinks on one occasion?: Never Total Score: 0 RONI-7 AMB Questionnaire RONI-7 Date RONI - 7 assessed: 12/03/23 Feeling nervous, anxious, or on edge: 1 = Several days Not being able to stop or control worryin = Several days Worrying too much about different things: 1 = Several days Trouble relaxin = Not at all Being so restless that it is hard to sit still: 0 = Not at all Becoming easily annoyed or irritable: 0 = Not at all Feeling afraid as if something awful might happen: 0 = Not at all Total RONI-7 score (0-4 normal; 5-9 mild; 10-14 moderate; 15-21 severe): 3 Source: Developed by Drs. Samson Novoa, Prachi Oh, Shoaib Cunha and colleagues, with an educational ruy from [employer]. RONI-7 Assessment Billing RONI-7 Assessment Tool: RONI-7 Assessment 24504 Review of Systems Const Denies headache(s) Eyes Denies loss of vision ENT Denies vertigo, Denies dizziness, Denies headache(s) and Denies sore throat Card Denies chest pain, Denies leg edema and Denies lightheadedness Resp Denies cough, Denies hemoptysis and Denies wheezing GI Denies abdominal pain, Denies melena, Denies constipation, Denies diarrhea and Denies vomiting Denies dysuria, Denies urinary frequency and Denies urinary urgency Musc Denies arthralgias, Denies joint swelling, Denies numbness and Denies tingling Neuro Denies Abnormal speech present, Denies behavioral changes, Denies vertigo, Denies dizziness, Denies headache(s), Denies loss of vision, Denies memory loss, Denies numbness and Denies tingling Psych Denies anxiety, Denies behavioral changes, Denies depression, Denies memory loss and Denies panic attacks Hiren/Lymph Denies easy bleeding and Denies easy bruising Aller/Immun Denies wheezing Physical exam (Primary Care) Vital Signs: Last Vital Signs Pulse 76 12/03/23 15:27 BP 140/92 H 12/03/23 15:27 Pulse Ox 98 12/03/23 15:27 Oxygen Delivery Method Room Air 12/03/23 15:27 BMI result Body Mass Index 25.7 Tobacco/Smoking Status: Tobacco use Status Tobacco use date assessed 12/03/23 12/03/23 15:38 Patient Tobacco Use Status Never used Tobacco 12/03/23 15:27 e-Cigarette/Vaping Use Never Used 12/03/23 15:27 PHQ-9: PHQ-9 Score PHQ-9: Total score 1 12/03/23 15:38 Depression Screening Interpretation: Negative Thrive Assessment: Date of Thrive Assessment Date Thrive assessed 12/03/23 12/03/23 15:38 Const General: healthy appearing, no acute distress, alert and awake Nutritional Appearance: well nourished Orientation/consciousness: oriented to person, oriented to place and oriented to time [facility] Head images: 2 1. SOFT MOBILE SUBCUTANEOUS CYST IN THE AREA OUTLINED Ears: TM's normal bilaterally General nose exam: Normal nasal mucous membranes and turbinates present Eyes Conjunctivae: conjunctivae normal Sclerae: sclerae normal Pupils: Equal, round and reactive pupils present Eyes/upper lids images: 2 1. RAISED YELLOWISH WHITE APPEARING SOFT NONTENDER NODULE LOCATED IN THE AREA OUTLINED. Neck Neck: Yes no lymphadenopathy and Yes no JVD Thyroid: Thyroid normal Carotids: no bruits Resp Effort & Inspection: normal respiratory effort and not tachypneic Auscultation: no crackles, no rales, no rhonchi and no wheezes Cardio Rate: regular rate Rhythm: regular rhythm Heart sounds: no murmurs and normal S1 and S2 GI Palpation (GI): Soft to palpation, nontender, no hepatomegaly and no splenomegaly Auscultation: normal bowel sounds Skin General skin exam: no rashes or lesions noted and dry skin Neuro General: oriented to person, oriented to place and oriented to time Cranial nerves: Yes Equal, round and reactive pupils present Speech: No Abnormal speech present Gait exam (Neuro): Normal gait present Motor exam (neuro): no tremor noted Extrem Right upper extremity: full ROM Left upper extremity: full ROM Right lower extremity: full ROM; no edema Left lower extremity: full ROM; no edema Psych Mental Status: mental status grossly normal Speech and movement: Normal speech and movement present Affect: normal affect Attitude: cooperative Thought process: Normal thought process present Assessment and Plan Assessment & Plan (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 He is interested in seeing a life insurance agent. Most recent lipid panel showing borderline high total cholesterol and triglycerides of 81. (2) Pilar cyst of scalp: Code(s): L72.11 - Pilar cyst Plan: Has a large Pilar cyst over the front aspect of his scalp. He again would like to see a life insurance agent. We did discuss the possibility of seeing a general surgeon for removal and he is still considering. (3) Borderline high cholesterol: Code(s): E78.9 - Disorder of lipoprotein metabolism, unspecified Plan: Does have history of borderline high cholesterol. Will check fasting lipid panel (4) Skin lesion of face: Code(s): L98.9 - Disorder of the skin and subcutaneous tissue, unspecified Plan: Again will refer to Dermatology. Coding Level of Care Code Est Pt Level 4 (65898) Diagnoses Xanthoma E75.5 Pilar cyst of scalp L72.11 Borderline high cholesterol E78.9 Skin lesion of face L98.9 Additional Codes RONI-7 Assessment Billing - RONI-7 Assessment Tool: RONI-7 Assessment 62050 ([id number])
[2023-12-03 15:27] VITALS: BP 140/92; PULSE 76; O2SAT 98; BMI 25.7
== END 2023-12-03 16:06 | disposition home or self-care (01) ==
PROVIDERS: PCP Physician Assistant; Visit Provider Physician Assistant
DX: E75.5 Other lipid storage disorders (principal); L72.11 Pilar cyst; E78.9 Disorder of lipoprotein metabolism, unspecified; L98.9 Disorder of the skin and subcutaneous tissue, unspecified
CPT/HCPCS: 99214

== ENCOUNTER 2023-12-31 15:55 | Emergency (ER) | payer OTHER, SELFPAY ==
[2023-12-31 15:59] VITALS: BP 174/105; PULSE 82; RESP 18; TEMP 35.7; O2SAT 99; BMI 25.8
== END 2023-12-31 18:50 | disposition left against medical advice (07) ==
LOC: HO.ED 18:47
PROVIDERS: Emergency Provider Emergency Medicine; PCP Physician Assistant
DX: R42 Dizziness and giddiness (principal); I10 Essential (primary) hypertension; R20.2 Paresthesia of skin
CPT/HCPCS: 99281

== ENCOUNTER 2024-01-04 16:01 | Emergency (ER) | payer OTHER, SELFPAY ==
[2024-01-04 16:22] VITALS: BP 152/108; PULSE 90; RESP 16; TEMP 36.8; O2SAT 98; BMI 24.6
--- NOTE | 2024-01-04 16:22 | ED.GENADULT ---
HPI - General Adult General Chief complaint: General Medical Stated complaint: med reaction? anxiety? Related Data Home Medications Medication Instructions Recorded Confirmed No Known Home Meds 01/27/23 12/03/23 Allergies Allergy/AdvReac Type Severity Reaction Status Date / Time No Known Allergies Allergy Verified 01/04/24 16:22 [facility] Past Medical History Medical History Anxiety Surgical History History of nephrectomy, left Family History Family History Mother No problems noted. Father No problems noted. 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 For the past month, he has believe that the history and his food is causing his anxiety. He began taking histamine digest pills 5 days ago to help with digestion. These began to make him feel worse. Reports eating lunch around 1300 today and taking another histamine pill. He immediately felt his extremities go cold. He began to feel anxious. Notes he has had a weird feeling over the past month that he can not describe. States his intent with this visit today is to get his BP checked, sit in the waiting room, and wait for this feeling to go away so that he can leave. States he feels safer here than he does at home. I explained the need for EKG and lab work. He does not want lab work done but is agreeable to EKG. bp elevated to 152/108. no hx of htn. does not take antihypertensives. ekg ordered. Full HPI, ROS and PE to be performed by the primary ED provider. Reevaluation(s) Reevaluation #1: Upon seeing his EKG, patient decided to leave the emergency department without completing treatment. Discharge Plan Discharge Clinical Impression: Anxiety Patient Disposition: Left W/O Completing Treatment Prescriptions: No Action No Known Home Meds Discharge Date/Time: 01/04/24 17:53
--- NOTE | 2024-01-04 16:28 | ECG_ITS ---
Test Reason : ANXIETY Blood Pressure : / mmHG Vent. Rate : 068 BPM Atrial Rate : 068 BPM P-R Int : 158 ms QRS Dur : 106 ms QT Int : 358 ms P-R-T Axes : 039 035 041 degrees QTc Int : 380 ms Normal sinus rhythm with sinus arrhythmia Possible Left atrial enlargement Borderline ECG When compared with ECG of 28-MAR-2017 10:56, No significant change was found Referred By: Laurie Banda Electronically Signed By:CORIN SALVADOR MD
== END 2024-01-04 17:53 | disposition left against medical advice (07) ==
PROVIDERS: Emergency Provider Emergency Medicine
DX: F41.1 Generalized anxiety disorder (principal); F43.0 Acute stress reaction; I49.8 Other specified cardiac arrhythmias
CPT/HCPCS: 93005; 99283

== ENCOUNTER → 2024-01-04 16:28 | Outpatient (BNV) | payer OTHER, SELFPAY | PROVIDERS: Emergency Provider Emergency Medicine; Visit Provider Internal Medicine Cardiovascular Disease | DX: I49.9 Cardiac arrhythmia, unspecified (principal) | CPT/HCPCS: 93010 ==

== ENCOUNTER 2024-01-07 06:58 | Emergency (ER) | payer OTHER, SELFPAY ==
--- NOTE | ~2024-01-07 | CT_ITS ---
EXAMINATION: CT ABDOMEN AND PELVIS WITHOUT CONTRAST CLINICAL INFORMATION: Right-sided pain and tenderness COMPARISON: CT abdomen from 03/10/2023 TECHNIQUE: Multidetector volumetric imaging was performed from the superior aspect of the liver through the pubic symphysis. Sagittal and coronal reformatted images were obtained on the technologist's workstation. This CT examination was performed using dose optimization techniques as appropriate, variously including the following: *Automated exposure control *Adjustment of mA and/or kV according to patient size (this includes techniques or standardized protocols for targeted exams where dose is matched to indication/reason for exam; i.e. extremities or head) *Use of iterative reconstruction technique DLP: No pneumothorax. No large pleural effusion mGy-cm FINDINGS: LUNG BASES: The visualized lung bases are unremarkable. LIVER, GALLBLADDER, AND BILIARY TREE: Right hepatic dome is incompletely imaged. The liver is normal in size, shape, and attenuation. No focal hepatic lesion or biliary ductal dilatation is present. The gallbladder is unremarkable with no evidence of radiopaque gallstones, gallbladder wall thickening, or obvious pericholecystic inflammatory changes. PANCREAS: Unremarkable. SPLEEN: Unremarkable. ADRENAL GLANDS: Unremarkable. KIDNEYS AND URETERS: Left kidney is surgically absent. Right-sided nephrolithiasis measuring up to 3 mm without hydronephrosis. Hypodense focus in the anterior aspect of the right renal interpolar/lower pole region measuring up to 9 mm statistically representing a cyst not requiring follow-up. BLADDER: Mild urinary bladder wall thickening which is nonspecific in a nonfully distended state. GASTROINTESTINAL TRACT: Colonic diverticulosis without acute diverticulitis. The small and large bowel are unremarkable. The appendix is unremarkable. ABDOMINAL WALL: Small fat filled umbilical hernia. LYMPH NODES: No enlarged lymph nodes per size criteria. VASCULAR: Abdominal aorta is not aneurysmal. PELVIC VISCERA: Prostate measures 5.2 cm with slight mass effect upon the urinary bladder base. OSSEOUS STRUCTURES: Unremarkable. CT/CT abdomen pelvis wo IV con IMPRESSION: 1. No acute process of the abdomen or pelvis identified. 2. Status post left nephrectomy. 3. Right-sided nephrolithiasis measuring up to 3 mm without hydronephrosis. 4. Hypodense focus in the anterior aspect of the right renal interpolar/lower pole region measuring up to 9 mm statistically representing a cyst not requiring follow-up. 5. Colonic diverticulosis without acute diverticulitis. 6. Prostate measures 5.2 cm with slight mass effect upon the urinary bladder base. Mild urinary bladder wall thickening which is nonspecific in a nonfully distended state.
[2024-01-07 07:05] VITALS: BP 147/108; PULSE 91; RESP 17; TEMP 37.1; O2SAT 99; BMI 24.8
[2024-01-07 07:34] LABS: MANUAL DIFF FLAG NO
[2024-01-07 07:35] LABS: Basophils Percent Auto 0.6 % (0-2); Eosinophils Absolute Auto 0.2 X10*3/uL (0.0-0.4); Eosinophils Percent Auto 2.9 % (0-4); Hematocrit 49.2 % (42.0-52.0); Hemoglobin 16.7 g/dl (14.0-18.0); Imm Gran Abs Auto 0.01 X10*3/uL (0.00-0.03); Imm Gran Pct Auto 0.2 % (0.0-0.4); Lymphocytes Absolute Auto 1.6 X10*3/uL (1.2-4.9); Lymphocytes Percent Auto 31.7 % (20-40); Mean Corpuscular HGB Conc 33.9 g/dl (31.0-36.0); Mean Corpuscular Hemoglobin 29.1 pg (27.0-33.0); Mean Corpuscular Volume 85.9 fL (80.0-98.0); Mean Platelet Volume 10.5 fL (9.4-12.4); Monocytes Absolute Auto 0.4 X10*3/uL (0.1-1.2); Monocytes Percent Auto 7.2 % (2-11); Neutrophils Percent Auto 57.4 % (45-73); Platelet Count 319 X10*3/uL (160-400); Red Blood Count 5.73 X10*6/uL (4.60-5.80); Red Cell Distribution Width 12.5 % (11.0-16.0); White Blood Count 5.2 X10*3/uL (4.8-10.8)
[2024-01-07 07:36] LABS: Appearance Urine Clear; Color Urine Yellow; Glucose Urine UA Negative (Negative); Leukocyte Esterase Urine Negative (Negative); Nitrite Urine Negative (Negative); Specific Gravity - Urine <= 1.005 (1.005-1.025); UMIC TRIGGER UACC YES; Urine Blood Negative (Negative); Urine Ketones Negative (Negative); Urine Protein 30 (1+) mg/dL (Neg-Trace)
[2024-01-07 07:39] LABS: Bacteria Urine None Seen (None Seen); Hyaline Casts Urine 0-2 /LPF (0-2); RBC Urine 0-2 /HPF (0-2); Squamous Epithelial Cell Urine 0-2 /HPF (0-2); WBC Urine 0-5 /HPF (0-5)
[2024-01-07 08:03] LABS: Alanine Aminotransferase 26 U/L (0-40); Albumin Level 4.7 g/dL (3.5-5.0); Alkaline Phosphatase 76 U/L (39-117); Anion Gap 12 (12-20); Aspartate Amino Transferase 16 U/L (5-37); Bilirubin Direct 0.2 mg/dL (0.0-0.5); Bilirubin Total 0.5 mg/dL (0.0-1.0); Blood Urea Nitrogen 15 mg/dL (9-16); Carbon Dioxide 30 mmol/L (22-29); Chloride 105 mmol/L (96-108); Creatinine Clr Calc Pharmacy 67.2; Estimated Glomerular Filt Rate 50; Glucose Random 97 mg/dL (60-115); Lipase 60 U/L (8-78); Potassium 4.4 mmol/L (3.3-5.1); Sodium 143 mmol/L (135-145)
--- NOTE | 2024-01-07 10:46 | ED_ITS ---
HPI - General Adult General Chief complaint: General Medical Stated complaint: stomach/back pain, body tension Time Seen by Provider: 01/07/24 10:46 History of Present Illness HPI narrative: The patient is a 43-year-old male who reports a history of a left nephrectomy about 10 years ago. Apparently he had had a CT scan that showed an incidental finding of 2 left renal masses and this prompted his left nephrectomy. He also has a history of chronic proteinuria since he was a teenager. The patient says that over the last month he has had abdominal pains and right- sided flank pain that are worse with eating. He says he has lost weight because of these pains. He is very anxious that his symptoms might represent some nefarious process. That he is having trouble concentrating because of his concerns and anxiety about these symptoms. Related Data Home Medications Medication Instructions Recorded Confirmed No Known Home Meds 01/27/23 12/03/23 Allergies Allergy/AdvReac Type Severity Reaction Status Date / Time No Known Allergies Allergy Verified 01/04/24 16:22 [facility] Past Medical History Medical History Anxiety Surgical History History of nephrectomy, left Family History Family History Mother No problems noted. Father No problems noted. 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 He has an anxious affect. He does not seem in distress otherwise. HENMT Other: The face is symmetrical. ?Mucous membranes moist. Eyes Other: Pupils are round equal, conjunctivae are clear, extraocular movements intact Neck Other: Moving his neck easily Resp Effort & Inspection: normal respiratory effort Auscultation: clear to auscultation bilaterally Cardio Rate: regular rate Rhythm: regular rhythm Heart sounds: S1 normal heart sound present and S2 normal heart sound present GI Other: Possibly some mild right-sided tenderness without rebound or guarding Back/Spine/Pelvis Other: Possibly some very subtle right-sided CVA percussion tenderness but this was an equivocal finding Skin Other: Skin is dry and unremarkable Neuro Other: Awake, alert, oriented, appropriate, grossly neurologically intact Extrem Other: No peripheral edema Medications Administered Discontinued Medications Generic Name Dose Route Start Last Admin Trade Name Freq PRN Reason Stop Dose Admin Sodium Chloride 1,000 mls @ 999 mls/hr 01/07/24 11:00 01/07/24 11:20 Ns IV 01/07/24 12:00 999 mls/hr .Q1H1M [facility] Administration Medical Decision Making Medical Decision Making [facility] Narrative: The patient is a 43-year-old with a history of a left nephrectomy for kidney cancer. 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 He describes obsessive worries about his health particularly with regard to his remaining kidney. He was very eager to have a CT scan to ensure that there is no identifiable problem with his right kidney. He did not wish to have IV contrast. His creatinine is 1.54. He has some proteinuria. His CT scan is negative. He found this reassuring. He has a PCP appointment next month. He has not seen his ancillary services manager for a long time. He will be discharged with instructions to contact his ancillary services manager to reestablish care with his ancillary services manager. Lab Data 01/07/24 07:19 01/07/24 07:19 Labs: Lab Results 01/07/24 01/07/24 Range/Units 07:19 07:22 WBC 5.2 (4.8-10.8) X10*3/uL RBC 5.73 (4.60-5.80) X10*6/uL Hgb 16.7 (14.0-18.0) g/dl Hct 49.2 (42.0-52.0) % MCV 85.9 (80.0-98.0) fL MCH 29.1 (27.0-33.0) pg MCHC 33.9 (31.0-36.0) g/dl RDW 12.5 (11.0-16.0) % Plt Count 319 (160-400) X10*3/uL MPV 10.5 (9.4-12.4) fL Immature Gran % (Auto) 0.2 (0.0-0.4) % Neut % (Auto) 57.4 (45-73) % Lymph % (Auto) 31.7 (20-40) % [place] % (Auto) 7.2 (2-11) % Eos % (Auto) 2.9 (0-4) % Baso % (Auto) 0.6 (0-2) % Lymph # (Auto) 1.6 (1.2-4.9) X10*3/uL [place] # (Auto) 0.4 (0.1-1.2) X10*3/uL Eos # (Auto) 0.2 (0.0-0.4) X10*3/uL Baso # (Auto) 0.0 (0.0-0.2) X10*3/uL Abs Immat Gran (auto) 0.01 (0.00-0.03) X10*3/uL Absolute Neuts (auto) 3.0 (2.0-8.3) x10*3/uL Absolute Nucleated RBC 0.000 (0.0-0.012) X10*3/uL Nucleated RBC % (auto) 0.0 (0.0-0.2) /100WBC Sodium 143 (135-145) mmol/L Potassium 4.4 (3.3-5.1) mmol/L Chloride 105 (96-108) mmol/L Carbon Dioxide 30 H (22-29) mmol/L Anion Gap 12 (12-20) BUN 15 (9-16) mg/dL Creatinine 1.54 H (0.5-1.4) mg/dL Estim Creat Clear Calc 67.2 Estimated GFR 50 Random Glucose 97 (60-115) mg/dL Calcium 10.0 (8.4-10.2) mg/dL Total Bilirubin 0.5 (0.0-1.0) mg/dL Direct Bilirubin 0.2 (0.0-0.5) mg/dL AST 16 (5-37) U/L ALT 26 (0-40) U/L Alkaline Phosphatase 76 (39-117) U/L Total Protein 8.0 (6.5-8.0) g/dL Albumin 4.7 (3.5-5.0) g/dL Lipase 60 (8-78) U/L Urine Color Yellow Urine Appearance Clear Urine pH 6.0 (5.0-9.0) Ur Specific [place] <= 1.005 (1.005-1.025) Urine Protein 30 (1+) H (Neg-Trace) mg/dL Urine Glucose (UA) Negative (Negative) mg/dL Urine Ketones Negative (Negative) mg/dL Urine Blood Negative (Negative) Urine Nitrite Negative (Negative) Ur Leukocyte Esterase Negative (Negative) Urine RBC 0-2 (0-2) /HPF Urine WBC 0-5 (0-5) /HPF Ur Squamous Epith Cells 0-2 (0-2) /HPF Urine Bacteria None Seen (None Seen) Hyaline Casts 0-2 (0-2) /LPF Discharge Plan Discharge Clinical Impression: Right sided abdominal pain Patient Disposition: Home, Self-Care Additional Instructions: Your testing today does not suggest any acutely dangerous process. Your CT scan shows a small (3 mm) kidney stone with in your right kidney. At the moment this stone is causing no problems. Your CT scan also shows a cyst in your right kidney. Your blood testing shows that your creatinine is mildly abnormal at 1.54. This is the same number as you were a year ago. Please plan on keeping your regular doctor's appointment next month. Also I would recommend reconnecting with your ancillary services manager. Return to the emergency room if worse. Prescriptions: No Action No Known Home Meds Referrals: Reg Rogers PA-C [Primary Care Provider] - (Right-sided pains, anxiety) Slick Vaca MD [Physician] - (chronic proteinuria) Interventions: ED Discharge Assessment Last Done: 01/07/24 13:38 Discharge Date/Time: 01/07/24 13:46
[2024-01-07 11:10] VITALS: BP 142/89; PULSE 72; RESP 16; TEMP 36.6; O2SAT 95
[2024-01-07] MEDS: 0.9 % Sodium Chloride 1,000 ML 999 ML IV (11:20)
--- NOTE | 2024-01-07 12:37 | PC.NURSE ---
Assumed care of this patient at 1100, patient resting quietly in bed at this time, IVF running, waitng lab/imaging results.
[2024-01-07 12:46] VITALS: BP 154/86; PULSE 58; RESP 16; O2SAT 98
--- NOTE | 2024-01-07 13:45 | PC.NURSE ---
Patient provided D/C paperwork, all questions answered, R IV removed.
== END 2024-01-07 13:46 | disposition home or self-care (01) ==
PROVIDERS: Emergency Provider Emergency Medicine; PCP Physician Assistant
DX: R10.9 Unspecified abdominal pain (principal); N20.0 Calculus of kidney; N28.1 Cyst of kidney, acquired; I10 Essential (primary) hypertension; E78.9 Disorder of lipoprotein metabolism, unspecified
CPT/HCPCS: 36415; 74176; 80048; 80076; 81001; 83690; 85025; 99284

== ENCOUNTER 2024-01-23 07:17 | Outpatient (REF) | payer OTHER, SELFPAY ==
[2024-01-23 08:08] LABS: Hematocrit 49.1 % (42.0-52.0); Hemoglobin 16.3 g/dl (14.0-18.0); Mean Corpuscular HGB Conc 33.2 g/dl (31.0-36.0); Mean Corpuscular Volume 87.4 fL (80.0-98.0); Mean Platelet Volume 10.6 fL (9.4-12.4); Platelet Count 341 X10*3/uL (160-400); Red Blood Count 5.62 X10*6/uL (4.60-5.80); White Blood Count 5.7 X10*3/uL (4.8-10.8)
[2024-01-23 08:37] LABS: Alanine Aminotransferase 31 U/L (0-40); Albumin Level 4.6 g/dL (3.5-5.0); Alkaline Phosphatase 71 U/L (39-117); Anion Gap 9 (12-20); Aspartate Amino Transferase 17 U/L (5-37); Bilirubin Total 0.7 mg/dL (0.0-1.0); Blood Urea Nitrogen 14 mg/dL (9-16); Calcium 9.9 mg/dL (8.4-10.2); Carbon Dioxide 30 mmol/L (22-29); Chloride 106 mmol/L (96-108); Cholesterol 307 mg/dL (<200); Estimated Glomerular Filt Rate 53; Glucose Fasting 89 mg/dL (60-99); HDL Cholesterol 40 mg/dL (>40); LDL Cholesterol Calculated 234 mg/dL (<100); Potassium 4.4 mmol/L (3.3-5.1); Sodium 141 mmol/L (135-145); Total Protein 7.7 g/dL (6.5-8.0); Triglycerides 168 mg/dL (<150)
== END 2024-01-23 07:18 | disposition home or self-care (01) ==
LOC: HO.LAB 07:17
PROVIDERS: PCP Physician Assistant; Visit Provider Physician Assistant
DX: E78.9 Disorder of lipoprotein metabolism, unspecified (principal); R53.83 Other fatigue; Z13.1 Encounter for screening for diabetes mellitus
CPT/HCPCS: 36415; 80053; 80061; 85027

== ENCOUNTER 2024-02-02 11:30 | Outpatient (AMB) | payer OTHER, SELFPAY ==
--- NOTE | 2024-02-02 11:58 | MHC.PC.OV ---
Vital Signs 02/02/24 11:59 Height 5 ft 11 in Weight 175 lb 2 oz BMI 24.4 BP 120/82 Blood Pressure Location Lt brachial Position Sitting Pulse 85 Pulse Source Pulse Oximeter Pulse Oximetry (%) 98 Oxygen Delivery Method Room Air Intake Visit Reasons: Annual exam Intake Note: Patient is here today for a physical. Button Inspector Required: No Accompanied by: Self / Same As Patient Allergies No Known Allergies Allergy (Verified 02/02/24 12:10) Medication List - Last Reconciled 02/02/24 by Reg Rogers PA-C lisinopril 10 mg PO DAILY Tobacco use date assessed: 12/03/23 Dental Screening Dental Screen Date: 02/02/24 Did you have a dental visit in the last 12 months?: Yes Did you have a dental problem in the last 6 months where you did not have access to dental care?: No Was dental information given to patient?: Patient has dentist HPI Annual exam HPI Details Patient is a 43 year-old male here today for routine annual physical.? Patient has a past medical history significant for generalized anxiety disorder, chronic fatigue syndrome, ? irritable bowel syndrome. .. Concern--> he was recently seen at the ER for acute abdominal pain. CT of abdomen without any significant abnormality besides a right renal cyst and 3 mm stone. He reports he has continue globalized abdominal pain, though back pain, belchingc, anxious feeling , cold feet that seem to have not gone away over the last month and a half. He otherwise denies any vomiting, change in stool or diarrhea. He is interested in noninvasive testing. .. Anxiety: Has been severe and has stopped him from working over the last year. he report his trigger is his GI issues that he has had for 20 years. Has been tested for gluten intolerance. Has had a CT abd/pelv in recent past which was normal , does? have a? total nephrectomy in the past. .. Hyperlipidemia: Most recent fasting labs showing an a very elevated total cholesterol and LDL. He reports he has not changed his diet much and was fasting for the labs. PLAN: Will recheck fasting lipids in 3 months. He will continue to monitor his diet for high cholesterol and trans fat foods. .. Vaccines: needs Tdap (declines) ,? declines COVID vaccine Laboratory Tests 03/10/23 01/07/24 01/23/24 06:26 07:19 07:32 Creatinine 1.56 H 1.54 H 1.46 H Cholesterol 307 H LDL Cholesterol, C alc 234 [facility] Medical History Anxiety Surgical History History of nephrectomy, left Family History Mother No problems noted. Father No problems noted. 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 Samson Novoa, Prachi Oh, Shoaib Cunha and colleagues, with an educational ruy from [employer]. Review of Systems Const Denies body aches, Denies chills, Denies excessive sweating, Denies fatigue, Denies fever(s) and Denies headache(s) Eyes Denies blurry vision ENT Denies dysphagia, Denies vertigo, Denies dizziness, Denies headache(s), Denies hearing loss and Denies tinnitus Card Denies chest pain, Denies chest pain with activity, Denies syncope, Denies irregular heart rhythm and Denies dyspnea Resp Denies chest congestion, Denies cough, Denies hemoptysis, Denies dyspnea and Denies wheezing GI Reports abdominal pain, Reports belching, Denies melena, Denies hematochezia, Denies coffee ground emesis, Denies dysphagia, Reports dyspepsia, Denies diarrhea, Denies nausea and Denies vomiting Denies difficulty urinating, Denies dysuria, Denies urinary frequency, Denies urinary hesitancy and Denies urinary urgency Musc Reports back pain, Denies arthralgias, Denies limited range of motion, Denies muscle cramps and Denies muscle weakness Skin/Breast Denies rash and Denies skin ulcer Neuro Denies Abnormal speech present, Denies confusion, Denies vertigo, Denies dizziness, Denies syncope, Denies headache(s), Denies memory loss and Denies seizure-like activity Psych Denies anxiety, Denies confusion, Denies depression, Denies memory loss, Denies panic attacks and Denies paranoia Endo Denies excessive sweating, Denies fatigue, Denies flushing, Denies polydipsia and Denies polyuria Aller/Immun Denies wheezing Physical exam (Primary Care) Vital Signs: Last Vital Signs Pulse 85 02/02/24 11:59 BP 120/82 02/02/24 11:59 Pulse Ox 98 02/02/24 11:59 Oxygen Delivery Method Room Air 02/02/24 11:59 BMI result Body Mass Index 24.4 Tobacco/Smoking Status: Tobacco use Status Tobacco use date assessed 12/03/23 02/02/24 11:59 Patient Tobacco Use Status Never used Tobacco 02/02/24 11:59 e-Cigarette/Vaping Use Never Used 02/02/24 11:59 Thrive Assessment: Date of Thrive Assessment Date Thrive assessed 12/03/23 02/02/24 11:59 Const General: cooperative, comfortable, no acute distress, alert and awake; No confusion Orientation/consciousness: oriented to person, oriented to place, patient oriented x3 and No confusion HENMT Head: Yes normocephalic Ears: external ears normal and TM's normal bilaterally Face and sinus: No sinus tenderness Mouth: Normal oral and palatal mucosa present and tongue normal Teeth and gingiva: dentition normal and gingiva normal Throat: Yes posterior oropharynx normal, Yes tonsils normal and Yes uvula midline Eyes Conjunctivae: conjunctivae normal Sclerae: sclerae normal Pupils: Equal, round and reactive pupils present EOM: EOMs intact bilaterally Direct Ophthalmoscopy: No no photophobia Neck Neck: Yes no lymphadenopathy, No tender and Yes no JVD Thyroid: Thyroid normal Carotids: no bruits Chest Chest palpation & inspection: no tenderness Resp Effort & Inspection: normal respiratory effort, no audible wheezes, not labored and no stridor Auscultation: no crackles, no rales, no rhonchi and no wheezes Cardio Jugular venous distension: no JVD Rate: regular rate, not bradycardic and not tachycardic Rhythm: regular rhythm Bruits: no carotid bruits Peripheral pulses: Peripheral pulses 2+ throughout GI Inspection: Yes normal to inspection, No abdominal wall ecchymosis and No visible herniation Palpation (GI): Soft to palpation, nontender, no guarding, not rigid and No hepatosplenomegaly present Auscultation: normoactive bowel sounds General: Yes no CVA tenderness Back/Spine/Pelvis Back: no CVA tenderness and No back tenderness Cervical Spine: cervical ROM normal Thoracic/Lumbar Spine: thoracic and lumbar spine normal to inspection, straight leg raise negative bilaterally, No thoraco-lumbar ROM limited and No lumbar spinal tenderness Skin Lesions: no lesions Rashes: no rashes Wounds: no wounds Neuro General: oriented to person, oriented to place, patient oriented x3, CN's II-XI intact bilaterally and No confusion Cranial nerves: Yes Equal, round and reactive pupils present and Yes Normal accommodation reflex present Cognition (Neuro): normal cognition Speech: No Abnormal speech present Gait exam (Neuro): Normal gait present Motor exam (neuro): 5/5 motor strength present throughout Extrem Right upper extremity: full ROM; no cyanosis Left upper extremity: full ROM; no cyanosis Right lower extremity: no edema Left lower extremity: no edema Psych Appearance: grossly normal Mental Status: mental status grossly normal Affect: normal affect Attitude: cooperative Thought process: Normal thought process present Assessment and Plan Assessment & Plan (1) Annual physical exam: Code(s): Z00.00 - Encounter for general adult medical examination without abnormal findings (2) RONI (generalized anxiety disorder): Code(s): F41.1 - Generalized anxiety disorder Plan: Continues to have anxiety and daily basis which she attributes to his digestion issues as well. Was treated for anxiety in the past though did not feel well SSRI medication. He reports that benzodiazepine used as needed has significantly helped him kind of reset his anxious symptoms. Willing to give him 3 tablets of diazepam to use on a very limited p.r.n. basis for panic At this time he has not interested in speaking with a mental health therapist. . (3) Borderline high cholesterol: Code(s): E78.9 - Disorder of lipoprotein metabolism, unspecified Plan: Patient's most recent lipid panel showing elevated cholesterol. Will work on lifestyle and dietary changes and recheck lipid panel in 3 months. (4) GERD (gastroesophageal reflux disease): Code(s): K21.9 - Gastro-esophageal reflux disease without esophagitis Qualifiers: Esophagitis presence: without esophagitis Qualified Code(s): K21.9 - Gastro-esophageal reflux disease without esophagitis Plan: Some of the patient's symptoms do sound like gastric reflux. Advised on the use gas reduction medications such as simethicone. Has not been able to tolerate PPI (5) Right renal stone: Code(s): N20.0 - Calculus of kidney Plan: Has been noted to have a right renal stone on most recent CT. Will get dedicated renal ultrasound the evaluate the right kidney as he does report right flank and back pain. Orders: Orders TSH reflex Free T4 02/02/24 E78.9 - Disorder of lipoprotein metabolism, unspecified Lyme IgG/IgM w/reflex to WB 02/02/24 K21.9 - Gastro-esophageal reflux disease without esophagitis, R14.1 - Gas pain, T78.1XXA - Other adverse food reactions, not elsewhere classified, initial encounter IRON PROFILE 02/02/24 D50.9 - Iron deficiency anemia, unspecified, K21.9 - Gastro-esophageal reflux disease without esophagitis, R14.1 - Gas pain, T78.1XXA - Other adverse food reactions, not elsewhere classified, initial encounter DNA Double Stranded-Crithidia 02/02/24 K21.9 - Gastro-esophageal reflux disease without esophagitis, R14.1 - Gas pain, T78.1XXA - Other adverse food reactions, not elsewhere classified, initial encounter Transglutaminase IgA 02/02/24 R14.0 - Abdominal distension (gaseous), R14.1 - Gas pain Transglutaminase Ab IgG 02/02/24 R14.0 - Abdominal distension (gaseous), R14.1 - Gas pain US renal RT 02/02/24 N20.0 - Calculus of kidney Lipase 02/02/24 K21.9 - Gastro-esophageal reflux disease without esophagitis, R14.1 - Gas pain, T78.1XXA - Other adverse food reactions, not elsewhere classified, initial encounter Amylase 02/02/24 K21.9 - Gastro-esophageal reflux disease without esophagitis, R14.1 - Gas pain, T78.1XXA - Other adverse food reactions, not elsewhere classified, initial encounter SORIN Reflex Titer and Pattern 02/02/24 K21.9 - Gastro-esophageal reflux disease without esophagitis, R14.1 - Gas pain, T78.1XXA - Other adverse food reactions, not elsewhere classified, initial encounter H pylori Ag Stool 02/02/24 K21.9 - Gastro-esophageal reflux disease without esophagitis, R14.1 - Gas pain, T78.1XXA - Other adverse food reactions, not elsewhere classified, initial encounter Vitamin B12 and Folate 02/02/24 E53.8 - Deficiency of other specified B group vitamins, K21.9 - Gastro-esophageal reflux disease without esophagitis, R14.1 - Gas pain, T78.1XXA - Other adverse food reactions, not elsewhere classified, initial encounter Calprotectin, Fecal 02/02/24 R14.1 - Gas pain Erythrocyte Sedimentation Rate 02/02/24 R14.1 - Gas pain Lipid Panel 3 Months E78.9 - Disorder of lipoprotein metabolism, unspecified Medications: New diazepam 5 mg PO ONCE 30 days PRN 3 tabs 0RF anxiety F41.1 - Generalized anxiety disorder Coding Level of Care Code Est Pt Prev Care 40-64y(50089) Diagnoses Annual physical exam Z00.00 RONI (generalized anxiety disorder) F41.1 Borderline high cholesterol E78.9 Gastroesophageal reflux disease without esophagitis K21.9 Esophagitis presence: without esophagitis Right renal stone N20.0
[2024-02-02 11:59] VITALS: BP 120/82; PULSE 85; O2SAT 98; BMI 24.4
== END 2024-02-02 12:59 | disposition home or self-care (01) ==
PROVIDERS: PCP Physician Assistant; Visit Provider Physician Assistant
DX: Z00.00 Encounter for general adult medical examination without abnormal findings (principal); F41.1 Generalized anxiety disorder; E78.9 Disorder of lipoprotein metabolism, unspecified; K21.9 Gastro-esophageal reflux disease without esophagitis; N20.0 Calculus of kidney
CPT/HCPCS: 99396

== ENCOUNTER 2024-02-02 13:04 | Outpatient (REF) | payer OTHER, SELFPAY ==
[2024-02-02 15:02] LABS: Erythrocyte Sedimentation Rate 1 MM/HR (0-15)
[2024-02-02 15:03] LABS: Amylase 110 U/L (28-100); Iron 157 mcg/dL (45-160); Lipase 69 U/L (8-78); Percent Iron Saturation 45 % (15-50); Total Iron Binding Capacity 348 mcg/dL (228-428); Unsaturated Iron Binding 191 ug/dL
[2024-02-02 15:21] LABS: Folate 7.7 ng/mL (> or = 4.0); Vitamin B12 336 pg/mL (200-900)
[2024-02-02 15:23] LABS: TSH reflex Free T4 0.92 uIU/mL (0.32-4.0)
[2024-02-03 13:13] LABS: Lyme Abs Screen <0.90 index
[2024-02-03 20:48] LABS: Transglutaminase IgA 1.2 U/mL
[2024-02-05 15:38] LABS: DNAds, Crithidia Antibody Negative (Negative)
[2024-02-09 10:53] LABS: Anti Nuclear Antibody Screen NEGATIVE (NEGATIVE)
== END 2024-02-02 13:05 | disposition home or self-care (01) ==
LOC: HO.LAB 13:04
PROVIDERS: PCP Physician Assistant; Visit Provider Physician Assistant
DX: E78.9 Disorder of lipoprotein metabolism, unspecified (principal); R14.1 Gas pain; K21.9 Gastro-esophageal reflux disease without esophagitis; R14.0 Abdominal distension (gaseous); E53.8 Deficiency of other specified B group vitamins; D50.9 Iron deficiency anemia, unspecified; T78.1XXA Other adverse food reactions, not elsewhere classified, initial encounter
CPT/HCPCS: 36415; 82150; 82607; 82746; 83540; 83690; 84443; 85652; 86038; 86255; 86364; 86617; 86618

== ENCOUNTER 2024-02-03 09:33 | Outpatient (REF) | payer OTHER, SELFPAY | END 2024-02-03 09:34 | disposition home or self-care (01) | LOC: HO.LNP 09:33 | PROVIDERS: Visit Provider Physician Assistant | DX: R14.1 Gas pain (principal); T78.1XXA Other adverse food reactions, not elsewhere classified, initial encounter; K21.9 Gastro-esophageal reflux disease without esophagitis | CPT/HCPCS: 83993; 87338 ==

== ENCOUNTER 2024-02-09 13:50 | Outpatient (REF) | payer OTHER, SELFPAY ==
[2024-02-10 14:19] LABS: IgA 220 mg/dL (47-310); IgG 988 mg/dL (600-1640); IgM 47 mg/dL (50-300)
[2024-02-13 13:13] LABS: Endomysial IgA Antibody Negative (Negative)
[2024-02-18 09:49] LABS: Transglutaminase Ab IgG 37.1 U/mL; Transglutaminase IgA 1.1 U/mL
== END 2024-02-09 13:51 | disposition home or self-care (01) ==
LOC: HO.LAB 13:50
PROVIDERS: PCP Physician Assistant; Visit Provider Physician Assistant
DX: R14.0 Abdominal distension (gaseous) (principal); R14.1 Gas pain
CPT/HCPCS: 36415; 82784; 86231; 86364

== ENCOUNTER 2024-08-19 14:32 | Outpatient (AMB) | payer OTHER, SELFPAY ==
--- NOTE | 2024-08-19 14:37 | MHC.PC.OV ---
Vital Signs 08/19/24 14:40 Height 5 ft 11 in Weight 183 lb 4 oz BMI 25.6 BP 138/88 Blood Pressure Location Lt brachial Position Sitting Pulse 85 Pulse Source Pulse Oximeter Pulse Oximetry (%) 99 Oxygen Delivery Method Room Air Intake Visit Reasons: Discuss with PCP of cyst removal Intake Note: The patient declined the flu vaccine today. Parts Room Assistant Required: No Accompanied by: Self / Same As Patient Allergies No Known Allergies Allergy (Verified 08/19/24 14:40) Medication List - Last Reconciled 08/19/24 by Reg Rogers PA-C diazepam 5 mg PO ONCE PRN 30 days lisinopril 10 mg PO DAILY Tobacco use date assessed: 12/03/23 Dental Screening Dental Screen Date: 02/02/24 HPI Discuss with PCP of cyst removal HPI Details Patient is a 44-year-old male here today for problem visit anything a referral. He has had a nontender cyst over the front of his scalp over the last approximately 2 years. He is now interested in having it removed. [facility] Medical History Anxiety Surgical History History of nephrectomy, left Family History Mother No problems noted. Father No problems noted. 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 Samson Novoa, Prachi Oh, Shoaib Cunha and colleagues, with an educational ruy from [employer]. Review of Systems Const Denies headache(s) Eyes Denies loss of vision ENT Denies vertigo, Denies dizziness, Denies headache(s) and Denies sore throat Card Denies chest pain, Denies leg edema and Denies lightheadedness Resp Denies cough, Denies hemoptysis and Denies wheezing GI Denies abdominal pain, Denies melena, Denies constipation, Denies diarrhea and Denies vomiting Denies dysuria, Denies urinary frequency and Denies urinary urgency Musc Denies arthralgias, Denies joint swelling, Denies numbness and Denies tingling Neuro Denies Abnormal speech present, Denies behavioral changes, Denies vertigo, Denies dizziness, Denies headache(s), Denies loss of vision, Denies memory loss, Denies numbness and Denies tingling Psych Denies anxiety, Denies behavioral changes, Denies depression, Denies memory loss and Denies panic attacks Hiren/Lymph Denies easy bleeding and Denies easy bruising Aller/Immun Denies wheezing Physical exam (Primary Care) Tobacco/Smoking Status: Tobacco use Status Tobacco use date assessed 12/03/23 08/19/24 14:38 Patient Tobacco Use Status Never used Tobacco 08/19/24 14:38 e-Cigarette/Vaping Use Never Used 08/19/24 14:38 Thrive Assessment: Date of Thrive Assessment Date Thrive assessed 12/03/23 08/19/24 14:38 Const General: healthy appearing, no acute distress, alert and awake Nutritional Appearance: well nourished Orientation/consciousness: oriented to person, oriented to place and oriented to time [facility] Head images: 1. PALPABLE SOFT SUBCUTANEOUS MASS OVER THE AREA OUTLINED. Ears: TM's normal bilaterally General nose exam: Normal nasal mucous membranes and turbinates present Eyes Conjunctivae: conjunctivae normal Sclerae: sclerae normal Pupils: Equal, round and reactive pupils present Neck Neck: Yes no lymphadenopathy and Yes no JVD Thyroid: Thyroid normal Carotids: no bruits Resp Effort & Inspection: normal respiratory effort and not tachypneic Auscultation: no crackles, no rales, no rhonchi and no wheezes Cardio Rate: regular rate Rhythm: regular rhythm Heart sounds: no murmurs and normal S1 and S2 GI Palpation (GI): Soft to palpation, nontender, no hepatomegaly and no splenomegaly Auscultation: normal bowel sounds Skin General skin exam: no rashes or lesions noted and dry skin Neuro General: oriented to person, oriented to place and oriented to time Cranial nerves: Yes Equal, round and reactive pupils present Speech: No Abnormal speech present Gait exam (Neuro): Normal gait present Motor exam (neuro): no tremor noted Extrem Right upper extremity: full ROM Left upper extremity: full ROM Right lower extremity: full ROM; no edema Left lower extremity: full ROM; no edema Psych Mental Status: mental status grossly normal Speech and movement: Normal speech and movement present Affect: normal affect Attitude: cooperative Thought process: Normal thought process present Coding Level of Care Code Est Pt Level 3 (85201) Diagnoses Pilar cyst of scalp L72.11 Assessment & Plan Assessment & Plan (1) Pilar cyst of scalp: Code(s): L72.11 - Pilar cyst Category: Medical Plan: PER HPI, PATIENT HAS NOTED A SUBCUTANEOUS CYST OVER HIS SCALP OVER THE LAST 2 YEARS. HE IS NOW INTERESTED IN GETTING IT REMOVED. WILL REFER TO GENERAL SURGEON FOR OFFICE PROCEDURE TO REMOVE WHAT SEEMS TO BE A PILAR CYST. Orders: Orders Microalbumin, Random (w Creat) Today I10 - Essential (primary) hypertension Comprehensive [place]. Panel Fast Today I10 - Essential (primary) hypertension Referrals General Surgery Referral L72.11 - Pilar cyst
[2024-08-19 14:40] VITALS: BP 138/88; PULSE 85; O2SAT 99; BMI 25.6
== END 2024-08-19 14:50 | disposition home or self-care (01) ==
PROVIDERS: PCP Physician Assistant; Visit Provider Physician Assistant
DX: L72.11 Pilar cyst (principal)

== ENCOUNTER → 2024-08-19 14:32 | Outpatient (BNVA) | payer OTHER, SELFPAY | PROVIDERS: PCP Physician Assistant; Visit Provider Physician Assistant | DX: L72.11 Pilar cyst (principal); I10 Essential (primary) hypertension | CPT/HCPCS: 99212 ==

== ENCOUNTER 2024-09-13 09:22 | Outpatient (AMB) | payer OTHER, SELFPAY ==
--- NOTE | 2024-09-13 09:25 | MHC.OFFVIS ---
Intake Visit Reasons: Pilar cyst Intake Note: Patient referred by pcp Reg Rogers PA-C for pilar cyst on frontal scalp. Present for 2yrs. Patient c/o: enlarging. Glazier Artist Required: No Accompanied by: Self / Same As Patient Allergies No Known Allergies Allergy (Verified 09/13/24 09:29) Medication List - Last Reconciled 09/13/24 by Pierre Lara MD diazepam 5 mg PO ONCE PRN 30 days lisinopril 10 mg PO DAILY HPI Comments Details: Patient presents with a pilar cyst involving his right frontal forehead area. Said the several years time his increasing in size, become more symptomatic. He would like to have it excised. He has no such lesions elsewhere. Chart was reviewed and patient evaluate [facility] Medical History Anxiety Surgical History History of nephrectomy, left Family History Mother No problems noted. Father No problems noted. 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 Risks, benefits, alternatives of excision of this process were reviewed the patient included but not limited to bleeding, infection, recurrence, numbness, pain, scarring the patient wished to proceed. All questions answered. Consent signed. Office Procedures Excision Details: After appropriate positioning, patient underwent 1% lidocaine and Betadine prep and longitudinal incision was made over the lesion in question consistent with a pilar cyst which was uneventfully enucleated. Specimen sent to pathology. Wound was irrigated, secured hemostasis, and closed using interrupted 2-0 Prolene sutures followed by bacitracin. Patient tolerated procedure well. [id number] scalp/neck/hands/feet/genitalia 1.1cm-2cm Procedure code (CPT) selection complete Office Meds lidocaine 1 %-epinephrine 1:100,000 injection solution Performing Provider: Pierre Lara MD Performing Location: [facility] [place] General Surgeons Administered by: Pierre Lara MD on 09/13/24 09:58 Dose Route Admin Location Dispensed Lot Number Expiration Date NDC Manager Reimbursement 10 mL Infiltration 10 mL Assessment & Plan Assessment & Plan (1) Pilar cyst of scalp: Code(s): L72.11 - Pilar cyst Category: Surgical Plan: Patient was been given local instructions including bacitracin each day, may shower starting today, ice periodically and will see me in a proximally 1.5 weeks time or p.r.n.. All questions answered Orders: Orders AMB Excision Today L72.11 - Pilar cyst Medications: New lidocaine-epinephrine 1 %-1:100,000 10 mL Infiltration ONCE 30 mL 0RF L72.11 - Pilar cyst Coding Level of Care Code New Pt Level 5 (12597) Diagnoses Pilar cyst of scalp L72.11 CPT Codes Scalp/Neck/Hands/Feet/Genetalia - CPT: 63522-[id number] scalp/neck/hands/feet/genitalia 1.1cm-2cm ([id number])
== END 2024-09-13 09:55 | disposition home or self-care (01) ==
PROVIDERS: PCP Physician Assistant; Referring Provider Physician Assistant; Visit Provider Surgery
DX: L72.11 Pilar cyst (principal)
CPT/HCPCS: 11422; 99203

== ENCOUNTER 2024-09-13 09:22 | Outpatient (REF) | payer OTHER, SELFPAY | END 2024-09-13 09:23 | disposition home or self-care (01) | LOC: HO.LNP 09:22 | PROVIDERS: PCP Physician Assistant; Referring Provider Physician Assistant; Visit Provider Surgery | DX: L72.11 Pilar cyst (principal) | CPT/HCPCS: 11422; 88304; 99202 ==

== ENCOUNTER → 2024-09-22 08:54 | Outpatient (BNVA) | payer OTHER, SELFPAY | PROVIDERS: PCP Physician Assistant; Visit Provider Surgery | DX: Z48.02 Encounter for removal of sutures (principal); Z98.890 Other specified postprocedural states; Z87.2 Personal history of diseases of the skin and subcutaneous tissue | CPT/HCPCS: 99211 ==

== ENCOUNTER 2025-10-03 15:56 | Outpatient (AMB) | payer OTHER, SELFPAY ==
--- NOTE | 2025-10-03 16:18 | A.OFFPC_ITS ---
Vital Signs 10/03/25 16:19 Height 5 ft 11 in Weight 180 lb 4 oz BMI 25.1 BP 110/86 Blood Pressure Location Lt brachial Position Sitting Pulse 78 Pulse Source Pulse Oximeter Temp 97.5 F Temp Source Temporal Artery Scan Pulse Oximetry (%) 97 Oxygen Delivery Method Room Air Intake Visit Reasons: Annual Exam Intake Note: Patient is here today for a physical. 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 Required: No Salt Maker: Not Required per policy Accompanied by: Self / Same As Patient Allergies No Known Allergies Allergy (Verified 10/03/25 16:57) Medication List - Last Reconciled 10/03/25 by Reg Rogers PA-C diazepam 5 mg PO ONCE PRN 30 days lisinopril 10 mg PO DAILY Tobacco use date assessed: 10/03/25 Dental Screening Dental Screen Date: 10/03/25 Did you have a dental visit in the last 12 months?: No Did you have a dental problem in the last 6 months where you did not have access to dental care?: No Was dental information given to patient?: No HPI Annual Exam HPI Details Patient is a 45 year-old male here today for routine annual physical.? Patient has a past medical history significant for generalized anxiety disorder, chronic fatigue syndrome, ? irritable bowel syndrome. .. Concern--> patient reports low energy and low libido. He is interested in getting his testosterone checked and starting on low-dose tadalafil 5 mg to help increase his libido .. Anxiety: Has been severe and has stopped him from working over the last year. he report his trigger is his GI issues that he has had for 20 years. Has been tested for gluten intolerance. Has had a CT abd/pelv in recent past which was normal , does? have a? total nephrectomy in the past. .. Hyperlipidemia: Most recent fasting labs showing an a very elevated total cholesterol and LDL. He reports he has not changed his diet much and has not been too physically. He has been adamantly against starting statin therapy though no since re- evaluating he does understand the cardiovascular risk and is somewhat interested in starting statin therapy if total cholesterol and LDL remain very elevated .. Vaccines: needs Tdap (declines) ,? declines COVID vaccine, declines Flu vaccine Laboratory Tests 03/10/23 01/07/24 01/23/24 06:26 07:19 07:32 Creatinine 1.56 H 1.54 H 1.46 H Cholesterol 307 H LDL Cholesterol, C alc 234 H [facility] Medical History Anxiety Surgical History History of nephrectomy, left Family History Mother No problems noted. Father No problems noted. 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 1. Little interest or pleasure in doing things: not at all 2. Feeling down, depressed, or hopeless: not at all 3. Trouble falling or staying asleep, or sleeping too much: not at all 4. Feeling tired or having little energy: not at all 5. Poor appetite or overeating: not at all 6. Feeling bad about yourself - or that you are a failure or have let yourself or your family down: not at all 7. Trouble concentrating on things, such as reading the newspaper or watching television: not at all 8. Moving or speaking so slowly that other people could have noticed. Or the opposite - being so fidgety or restless that you have been moving around a lot more than usual: not at all 9. Thoughts that you would be better off or of hurting yourself in some way: not at all Total score: 0 Depression Screening Interpretation: Negative Depression Screening Done: Yes Source: Developed by Drs. Samson Novoa, Prachi Oh, Shoaib Cunha and colleagues, with an educational ruy from [employer]. Thrive Questionnaire Date Thrive assessed: 03/23/25 I am a: Patient What is your living situation today?: I have a steady place to live Within the past 12 months, did the food you bought not last and you didn't have the money to get more?: Never true Within the past 12 months, did you worry whether your food would run out before you got money to buy more?: Never true Do you have trouble paying for medicines?: No Do you have trouble getting transportation to medical appointments?: No Do you have trouble paying your heating and electricity bill?: No Do you have trouble taking care of your child, family member or friend?: No Do you have trouble with day-to-day activities such as bathing, preparing meals, shopping, managing finances, etc.?: No Are you currently unemployed and looking for a job?: No Are you interested in more education?: No Please select the resources that you would like help with: None Currently or been in a relationship where the following occur: No concerns reported THRIVE Score: 0 AUDIT C Alcohol Use Questionnaire (AUDIT-C) 1. How often do you have a drink containing alcohol?: Never Total Score: 0 RONI-7 AMB Questionnaire RONI-7 Date RONI - 7 assessed: 10/03/25 Feeling nervous, anxious, or on edge: 0 = Not at all Not being able to stop or control worryin = Not at all Worrying too much about different things: 0 = Not at all Trouble relaxin = Not at all Being so restless that it is hard to sit still: 0 = Not at all Becoming easily annoyed or irritable: 0 = Not at all Feeling afraid as if something awful might happen: 0 = Not at all Total RONI-7 score (0-4 normal; 5-9 mild; 10-14 moderate; 15-21 severe): 0 Source: Developed by Drs. Samson Novoa, Prachi Oh, Shoaib Cunha and colleagues, with an educational ruy from [employer]. Review of Systems Const Denies headache(s) Eyes Denies loss of vision ENT Denies vertigo, Denies dizziness, Denies headache(s) and Denies sore throat Card Denies chest pain, Denies leg edema and Denies lightheadedness Resp Denies cough, Denies hemoptysis and Denies wheezing GI Denies abdominal pain, Denies melena, Denies constipation, Denies diarrhea and Denies vomiting Denies dysuria, Denies urinary frequency and Denies urinary urgency Musc Denies arthralgias, Denies joint swelling, Denies numbness and Denies tingling Neuro Denies Abnormal speech present, Denies behavioral changes, Denies vertigo, Denies dizziness, Denies headache(s), Denies loss of vision, Denies memory loss, Denies numbness and Denies tingling Psych Denies anxiety, Denies behavioral changes, Denies depression, Denies memory loss and Denies panic attacks Hiren/Lymph Denies easy bleeding and Denies easy bruising Aller/Immun Denies wheezing Physical exam (Primary Care) Vital Signs: Last Vital Signs Temp 97.5 F 10/03/25 16:19 Pulse 78 10/03/25 16:19 BP 110/86 10/03/25 16:19 Pulse Ox 97 10/03/25 16:19 Oxygen Delivery Method Room Air 10/03/25 16:19 BMI result Body Mass Index 25.1 Tobacco/Smoking Status: Tobacco use Status Tobacco use date assessed 10/03/25 10/03/25 16:23 Patient Tobacco Use Status Never used Tobacco 10/03/25 16:23 e-Cigarette/Vaping Use Never Used 10/03/25 16:23 PHQ-9: PHQ-9 Score PHQ-9: Total score 0 10/04/25 12:44 Depression Screening Interpretation: Negative Thrive Assessment: Date of Thrive Assessment Date Thrive assessed 03/23/25 10/03/25 16:23 Currently or been in a relationship where the following occur: No concerns reported Const General: healthy appearing, no acute distress, alert and awake Nutritional Appearance: well nourished Orientation/consciousness: oriented to person, oriented to place and oriented to time HENNJ Ears: TM's normal bilaterally General nose exam: Normal nasal mucous membranes and turbinates present Eyes Conjunctivae: conjunctivae normal Sclerae: sclerae normal Pupils: Equal, round and reactive pupils present Neck Neck: Yes no lymphadenopathy and Yes no JVD Thyroid: Thyroid normal Carotids: no bruits Resp Effort & Inspection: normal respiratory effort and not tachypneic Auscultation: no crackles, no rales, no rhonchi and no wheezes Cardio Rate: regular rate Rhythm: regular rhythm Heart sounds: no murmurs and normal S1 and S2 GI Palpation (GI): Soft to palpation, nontender, no hepatomegaly and no splenomegaly Auscultation: normal bowel sounds Skin General skin exam: no rashes or lesions noted and dry skin Neuro General: oriented to person, oriented to place and oriented to time Cranial nerves: Yes Equal, round and reactive pupils present Speech: No Abnormal speech present Gait exam (Neuro): Normal gait present Motor exam (neuro): no tremor noted Extrem Right upper extremity: full ROM Left upper extremity: full ROM Right lower extremity: full ROM; no edema Left lower extremity: full ROM; no edema Psych Mental Status: mental status grossly normal Speech and movement: Normal speech and movement present Affect: normal affect Attitude: cooperative Thought process: Normal thought process present Coding Level of Care Code Est Pt Prev Care 40-64y(50502) Diagnoses Annual physical exam Z00.00 Low libido R68.82 Primary hypertension I10 Hypertension type: primary hypertension Mixed hyperlipidemia E78.2 Hyperlipidemia type: mixed hyperlipidemia Assessment & Plan Assessment & Plan (1) Annual physical exam: Code(s): Z00.00 - Encounter for general adult medical examination without abnormal findings Category: Medical Plan: as per HPI (2) Low libido: Code(s): R68.82 - Decreased libido Category: Medical Plan: Patient reporting somewhat of a libido and energy. He wonders if he has a low testosterone. He is interested in taking a daily tadalafil 5 mg to help increase his energy and libido. (3) HTN (hypertension): Code(s): I10 - Essential (primary) hypertension Category: Medical Qualifiers: Hypertension type: primary hypertension Qualified Code(s): I10 - Essential (primary) hypertension Plan: Patient's blood pressure acceptable today in office. He does have a history of a nephrectomy and was to be on lisinopril though reports side effect of lisinopril of dizziness. Will consider starting aRB if continues to have microalbuminuria (4) HLD (hyperlipidemia): Code(s): E78.5 - Hyperlipidemia, unspecified Category: Medical Qualifiers: Hyperlipidemia type: mixed hyperlipidemia Qualified Code(s): E78.2 - Mixed hyperlipidemia Plan: Patient has a history of very elevated total cholesterol and LDL. We did discuss starting statin therapy to help reduce his cardiovascular risk though he declines. He would like to work on lifestyle modifications and being more physically active. If LDL above 190 will strongly recommend starting statin therapy Orders: Orders UA CC w/rflx Micro + Cult Today R30.0 - Dysuria, R39.11 - Hesitancy of micturition Microalbumin, Random (w Creat) Today I10 - Essential (primary) hypertension Testosterone, Free/Total Today R68.82 - Decreased libido Lipid Panel Today E78.9 - Disorder of lipoprotein metabolism, unspecified Comprehensive [place]. Panel Fast Today E78.9 - Disorder of lipoprotein metabolism, unspecified Complete Blood Count no Diff Today E78.9 - Disorder of lipoprotein metabolism, unspecified Medications: New tadalafil (Cialis) 5 mg PO DAILY 30 tabs 1RF 30 days R68.82 - Decreased libido Discontinued lisinopril Discontinued Reason: Doctor's Order 10 mg PO DAILY 30 tabs 1RF I10 - Essential (primary) hypertension
[2025-10-03 16:19] VITALS: BP 110/86; PULSE 78; TEMP 36.4; O2SAT 97; BMI 25.1
== END 2025-10-03 17:23 | disposition home or self-care (01) ==
LOC: HO.HMCH 15:56
PROVIDERS: PCP Physician Assistant; Visit Provider Physician Assistant
DX: Z00.00 Encounter for general adult medical examination without abnormal findings (principal); R68.82 Decreased libido; I10 Essential (primary) hypertension; E78.2 Mixed hyperlipidemia

== ENCOUNTER → 2025-10-03 15:56 | Outpatient (BNVA) | payer OTHER, SELFPAY | PROVIDERS: PCP Physician Assistant; Visit Provider Physician Assistant | DX: Z00.00 Encounter for general adult medical examination without abnormal findings (principal); F41.9 Anxiety disorder, unspecified; R68.82 Decreased libido; I10 Essential (primary) hypertension; E78.2 Mixed hyperlipidemia; R30.0 Dysuria; R39.11 Hesitancy of micturition | CPT/HCPCS: 99396 ==

== ENCOUNTER 2025-10-04 07:49 | Outpatient (REF) | payer OTHER, SELFPAY ==
[2025-10-04 08:20] LABS: Hematocrit 48.9 % (42.0-52.0); Hemoglobin 16.0 g/dl (14.0-18.0); Mean Corpuscular HGB Conc 32.7 g/dl (31.0-36.0); Mean Corpuscular Hemoglobin 28.5 pg (27.0-33.0); Mean Corpuscular Volume 87.2 fL (80.0-98.0); NRBC Abs Auto 0.000 X10*3/uL (0.0-0.012); NRBC Pct Auto 0.0 /100WBC (0.0-0.2); Platelet Count 346 X10*3/uL (160-400); Red Blood Count 5.61 X10*6/uL (4.60-5.80); White Blood Count 5.7 X10*3/uL (4.8-10.8)
[2025-10-04 08:35] LABS: Appearance Urine Clear; Glucose Urine UA Negative (Negative); PH 5.5 (5.0-9.0); Specific Gravity - Urine 1.020 (1.005-1.025); UMIC TRIGGER UACC YES
[2025-10-04 08:54] LABS: Alanine Aminotransferase 42 U/L (0-40); Albumin Level 4.9 g/dL (3.5-5.0); Alkaline Phosphatase 85 U/L (39-117); Anion Gap 12 (12-20); Aspartate Amino Transferase 27 U/L (5-37); Blood Urea Nitrogen 20 mg/dL (9-16); Calcium 9.9 mg/dL (8.4-10.2); Carbon Dioxide 25 mmol/L (22-29); Chloride 105 mmol/L (96-108); Cholesterol 342 mg/dL (<200); Estimated Glomerular Filt Rate 50; HDL Cholesterol 39 mg/dL (>40); Potassium 4.0 mmol/L (3.3-5.1); Sodium 138 mmol/L (135-145); Total Protein 8.0 g/dL (6.5-8.0); Triglycerides 199 mg/dL (<150)
[2025-10-04 09:17] LABS: Microalbum/Creatinine Ratio Ur 296.5 ug/mg cr (<30)
[2025-10-09 11:43] LABS: Testosterone, Free 68.0 pg/mL (35.0-155.0)
== END 2025-10-04 07:50 | disposition home or self-care (01) ==
LOC: HO.LAB 07:49
PROVIDERS: PCP Physician Assistant; Visit Provider Physician Assistant
DX: I10 Essential (primary) hypertension (principal); E78.9 Disorder of lipoprotein metabolism, unspecified; R68.82 Decreased libido
CPT/HCPCS: 36415; 80053; 80061; 81001; 82043; 82570; 84402; 84403; 85027

== ENCOUNTER 2025-10-20 15:09 | Outpatient (AMB) | payer OTHER, SELFPAY ==
[2025-10-20 15:14] VITALS: BP 154/90; PULSE 90; O2SAT 99; BMI 25.7
--- NOTE | 2025-10-20 15:14 | HO.NEPHOV_ITS ---
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 He was first diagnosed with proteinuria 25 years ago during a routine physical for high school sports, which was attributed to glomerulonephritis. A kidney biopsy was performed approximately 20 years ago, around the time of the initial diagnosis. Biopsy revealed IgA Nephropathy Approximately 10 years ago, he was incidentally found to have two masses in his left kidney during an emergency room visit for stomach issues, leading to a diagnosis of renal cancer. He subsequently underwent a radical left nephrectomy and did not require any adjuvant chemotherapy or radiation. He now has a solitary right kidney. He has a history of nephrolithiasis, with a CT scan 18 months ago showing a 3 mm stone in the right kidney. His GFR is 50 and has been stable for the last four to five years. He also has a history of hypertension with home readings typically around the 130s, but with past readings in the 140s-150s. The patient was previously managed by Dr. Slick Vaca and prescribed lisinopril, but he was intermittently adherent due to side effects of lightheadedness and dizziness. He has been lost to nephrology follow-up for several years. Recently, his primary care provider prescribed simvastatin for newly addressed hyperlipidemia and losartan for his proteinuria and hypertension, but he has not yet started the losartan. He has a family history of a grandfather with kidney problems. He does not smoke or drink alcohol and avoids NSAIDs, preferring to use Tylenol. Patient Instructions - You plan to start taking losartan 25 mg once a day in about two weeks. - You can take the losartan at night to help avoid any dizziness, as this is a side effect you experienced with a similar medication in the past. - Continue to take your cholesterol medication (simvastatin) as prescribed. - Please avoid using NSAID pain relievers like Aleve, Advil, or Motrin. Tylenol is a safer option for your kidneys. - We will get lab work done in four weeks. This will include blood and urine tests to check your kidney function, protein levels, and cholesterol. - Please schedule a kidney ultrasound. This is not urgent and can be done after the holidays. - If you have any problems with the new medication, please call our office. - Your next follow-up appointment will be in six weeks to go over your test results. Patient was informed and verbally consented to the use of an ambient scribe for clinic note documentation during this visit. [facility] Medical History (Updated 10/20/25 @ 15:45 by Hugh Mccloud MD) Anxiety Surgical History (Updated 10/20/25 @ 15:17 by Hugh Mccloud MD) History of nephrectomy, left Family History Mother No problems noted. Father No problems noted. 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 Right-sided nephrolithiasis measuring up to 3 mm without hydronephrosis. Hypodense focus in the anterior aspect of the right renal interpolar/lower pole region measuring up to 9 mm statistically representing a cyst not requiring follow-up. BLADDER: Mild urinary bladder wall thickening which is nonspecific in a nonfully distended state. Nephrology Results: Hgb, (14.0-18.0) 16.0 g/dl 10/04/25 WBC, (4.8-10.8) 5.7 X10*3/uL 10/04/25 Plt Count, (160-400) 346 X10*3/uL 10/04/25 Sodium, (135-145) 138 mmol/L 10/04/25 Potassium, (3.3-5.1) 4.0 mmol/L 10/04/25 Chloride, (96-108) 105 mmol/L 10/04/25 Carbon Dioxide, (22-29) 25 mmol/L 10/04/25 BUN, (9-16) 20 mg/dL H 10/04/25 Creatinine, (0.5-1.4) 1.52 mg/dL H 10/04/25 Calcium, (8.4-10.2) 9.9 mg/dL 10/04/25 Urine Protein, (Neg-Trace) 100 (2+) mg/dL H 10/04/25 Urine Creatinine 166.23 mg/dL 10/04/25 Assessment & Plan Assessment & Plan (1) IgA nephropathy: Code(s): N02.B9 - Other recurrent and persistent immunoglobulin A nephropathy Category: Medical (2) CKD (chronic kidney disease) stage 3, GFR 30-59 ml/min: Code(s): N18.30 - Chronic kidney disease, stage 3 unspecified Category: Medical (3) HTN (hypertension): Code(s): I10 - Essential (primary) hypertension Category: Medical Qualifiers: Hypertension type: primary hypertension Qualified Code(s): I10 - Essential (primary) hypertension (4) Right renal stone: Code(s): N20.0 - Calculus of kidney Category: Medical Plan 1. 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 - Will re-initiate treatment with an ARB to manage proteinuria and hypertension. - The patient will start losartan 25 mg, a low starting dose, in two weeks. - A total urine protein test will be ordered to establish a new baseline for monitoring, as previous tests only checked for microalbumin. - Blood and urine labs will be repeated in four weeks (two weeks after starting losartan) to assess for any changes in kidney function. 2.HTN no h/o HTN thus far Office readign was elevated Goal to keep BP < 130/80 Start Losartan 25 mg QD Low salt diet 3. Nephrolithiasis In A Solitary Kidney - A CT scan 18 months ago revealed a 3 mm stone in his solitary right kidney. - A new kidney ultrasound will be ordered to monitor the kidney and the stone, which can be scheduled non-urgently after the holidays. 4. Hyperlipidemia - The patient has elevated cholesterol (342) and was recently started on simvastatin by his PCP. - A lipid panel will be added to the lab orders for four weeks to assess his response to treatment, consolidating his lab draws. Orders: Orders US renal BI Today N20.0 - Calculus of kidney Coding Level of Care Code New Pt Level 5 (81830) Diagnoses IgA nephropathy N02.B9 CKD (chronic kidney disease) stage 3, GFR 30-59 ml/min N18.30 Primary hypertension I10 Hypertension type: primary hypertension Right renal stone N20.0 Time Spent (min) 46
[2025-10-20 15:36] VITALS: BP 140/90
== END 2025-10-20 15:42 | disposition home or self-care (01) ==
LOC: HO.HKA 15:09
PROVIDERS: PCP Physician Assistant; Referring Provider Physician Assistant; Visit Provider Internal Medicine Hypertension Specialist
DX: N02.B9 Other recurrent and persistent immunoglobulin A nephropathy (principal); N18.30 Chronic kidney disease, stage 3 unspecified; I10 Essential (primary) hypertension; N20.0 Calculus of kidney
CPT/HCPCS: 99205

== ENCOUNTER → 2025-10-20 15:09 | Outpatient (BNVA) | payer OTHER, SELFPAY | PROVIDERS: PCP Physician Assistant; Referring Provider Physician Assistant; Visit Provider Internal Medicine Hypertension Specialist | DX: N02.B9 Other recurrent and persistent immunoglobulin A nephropathy (principal); N18.30 Chronic kidney disease, stage 3 unspecified; I10 Essential (primary) hypertension; N20.0 Calculus of kidney | CPT/HCPCS: 99202 ==

== ENCOUNTER 2025-11-01 09:23 | Outpatient (REF) | payer OTHER, SELFPAY ==
--- NOTE | ~2025-11-01 | US_ITS ---
CLINICAL HISTORY: N20.0 - Calculus of kidney US of kidneys Comparison: None provided Findings: Per ultrasound worksheet, patient is status post left nephrectomy, left renal fossa is not insonated by technical photographer. Right kidney is normal in size and echogenicity, 11.5 cm in length, no cortical thinning. No calculus or hydronephrosis. 3 hyperechoic nonshadowing avascular peripheral cortical lesions in the interpolar region 4-6 mm; additional mildly hyperechoic and mildly heterogeneous solid masses 2.2 x 2.3 x 2.2 cm and 1.5 x 1.4 x 1.4 cm in the upper pole, no intralesional vascular flow; 1.1 x 1.3 x 1.2 cm unilocular cyst with echogenic thick rim probably calcified cystic wall in the lower pole. Impression: 1. 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 2. Probable complex cyst with calcified cystic wall in the lower pole right kidney. 3. Status post reported left nephrectomy. This document has been electronically signed by: Jackie Norwood MD on 11/01/2025 12:30:42
== END 2025-11-01 09:24 | disposition home or self-care (01) ==
LOC: HO.HMGCX 09:23
PROVIDERS: PCP Physician Assistant; Visit Provider Internal Medicine Hypertension Specialist
DX: N20.0 Calculus of kidney (principal)
CPT/HCPCS: 76775

== ENCOUNTER → 2025-11-01 09:27 | Outpatient (BNV) | payer OTHER, SELFPAY | PROVIDERS: PCP Physician Assistant; Visit Provider Radiology Diagnostic Radiology | DX: N20.0 Calculus of kidney (principal); N28.89 Other specified disorders of kidney and ureter; Z90.5 Acquired absence of kidney | CPT/HCPCS: 76775 ==